=== PATIENT | female | born 1945 | race Caucasian/White ===

== ENCOUNTER 2024-07-27 12:04 | Outpatient (CLI) | payer MEDICARE, SELFPAY | END 2024-07-27 12:05 | disposition home or self-care (01) | LOC: AMB 07-29 11:19 | PROVIDERS: PCP Family Medicine; Visit Provider Emergency Medicine | DX: S99.912A Unspecified injury of left ankle, initial encounter (principal); W18.39XA Other fall on same level, initial encounter; Y92.512 Supermarket, store or market as the place of occurrence of the external cause | CPT/HCPCS: A0425; A0433 ==

== ENCOUNTER 2024-07-27 12:40 | Inpatient (IN) | payer MEDICARE, SELFPAY ==
[2024-07-27] VITALS (23 sets, daily range): BP systolic 112–199; BP diastolic 52–97; PULSE 70–92; RESP 18; TEMP 36.4–36.7; O2SAT 96–100; BMI 21.0; BMI 23.7
--- OUTSIDE RECORDS SUMMARY | 2024-07-27 12:43 | XMS_ITS | Clinical Summary ---
Author Organization [facility] Address [address] [place] [address] Care Team Providers Care Behavioral Health Aide Name Role Phone James Colby MD Unavailable [phone] Stephanie Barbosa MD Primary Care Provider [phone] Rudy Gomez MD Unavailable [phone] Allergies Active Allergy Reactions Criticality Noted Date Comments Penicillins Rash Childhood reaction Sulfa (Sulfonamide Antibiotics) Other - Describe In Comment Field purple leg Medications omeprazole (PRILOSEC) 20 mg Delayed-Release capsuleIndications: Chronic GERD Take 1 Capsule (20 mg) by mouth once daily if needed. 0 1 Active methotrexate (RHEUMATREX) 2.5 mg tabletIndications:R heumatoid arthritis, seropositive (HC) TAKE 3 TABLETS BY MOUTH EVERY SATURDAY 36 Tablet 4 4 Active allopurinoL (ZYLOPRIM) 100 mg tabletIndications:H igh risk medication use,Hyperuricemia,G out, unspecified cause, unspecified chronicity, unspecified site TAKE 2 TABLETS BY MOUTH ONCE DAILY. 180 Tablet 1 5 Active lisinopriL (PRINIVIL; ZESTRIL) 20 mg tabletIndications:H ypertension, unspecified type Take 1 Tablet (20 mg) by mouth once daily. 90 Tablet 3 5 Active rosuvastatin (CRESTOR) 10 mg tabletIndications:H yperlipidemia, unspecified hyperlipidemia type Take 1 Tablet (10 mg) by mouth at bedtime. 90 Tablet 3 5 Active chlorthalidone (HYGROTON) 25 mg tabletIndications:E ssential hypertension with goal blood pressure less than 140/90 Take 0.5 Tablets (12.5 mg) by mouth once daily. 45 Tablet 3 5 Active folic acid 1 mg tabletIndications:F olic acid deficiency Take 1 Tablet (1 mg) by mouth once daily. 90 Tablet 3 5 Active multivitamin (MVI) tabletIndications:U nintentional weight loss Take 1 Tablet by mouth once daily. 90 Tablet 3 5 Active calcium carbonate-vitamin D3, 600 mg-400 unit, 600 mg-10 mcg (400 unit) tabletIndications:O steopenia, unspecified location Take 1 Tablet by mouth two times daily with meals. 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 Hysterectomy ? Partial for uterine fibroids Colonoscopy Lipids 09/20/06 Encounters Date Type Department Care Team Description 06/24/2024 Orders Only [facility] [address] [place] [address] Stephanie Barbosa MD <No scans attached> 06/23/2024 1:35 PM AVIATION ELECTRONICS TECHNICIAN Office Visit [facility] [address] [place] [address] Stephanie Barbosa MD Medicare ANNUAL (subsequent) Visit (78 year old) 06/23/2024 Travel 06/18/2024 Refill [facility] [address] [place] [address] Rudy Gomez MD Refill Request (Allopurinol) 05/27/2024 Telephone [facility] [address] [place] [address] Stephanie Barbosa MD Questions (Lab work) from Last 3 Months Immunizations Immunization Administration Dates Next Due AMB INFLUENZA IIV3 (AGE 65+ YRS) PF (Flu Clinic Only) 02/26/2017 COVID-19 vaccine (Moderna 100mcg/0.5mL) PF, MDV 05/15/2021,08/19/2020,06/24/2020 Influenza, High-dose Inactivated 019,03/01/2016,04/12/2015,2013 Influenza, High-dose Quadriv alent Inactivated 03/01/2023,04/13/2022 Influenza, IIV3 (Age >=3 years) 02/09/2013,02/18,05/21/2008 Influenza, IIV4 03/08/2014 Influenza, Inactivated AIIV4 (Age 65+ Years) Preserv Free 02/16/2021,01/15/2020 Influenza, Inactivated IIV3 (Age 65+ Years) Preserv Free 01/15/2024,02/19/2018 Pneumococcal Poly,23-Valent (Pneumovax) 01/10/2011 Pneumococcal conj 13-Valent (Prevnar 13) 07/23/2014 Td (Age >=7 Years) 06/16/1998 Tdap 11/11/2023,05/21/2008 Family History Medical History Relation Name Comments Diabetes Brother Heart Disease Brother Heart Disease Father heart dis. age 67 Cancer Mother bone Cancer-breast Paternal Grandmother Cancer-breast Sister 2x Diabetes Sister Relation Name Status Comments Brother sepsis Father Mother Paternal Grandmother Sister Social History Tobacco Use Types Packs/Day Years Used Date Smoking Tobacco: Never Smokeless Tobacco: Never Tobacco Cessation:Counseling Given: Yes Alcohol Use Standard Drinks/Week Comments No 0 (1 standard drink = 0.6 oz pur e alcohol) PHQ-2 Answer Date Recorded PHQ-2 TOTAL SCORE 0 06/23/2024 Social Connections Answer Date Recorded Do you often feel lonely or isolated from those around you? 0 08/28/2023 Financial Resource Strain Answer Date R ecorded Difficulty of Paying Living Expenses 3 08/28/2023 Difficulty of Paying Living Expenses Not on file 08/28/2023 Food Insecurity Answer Date Recorded Do you worry your food will run out before you are able to buy more? 1 08/28/2023 Transportation Needs Answer Date Record ed Does lack of transportation keep you from medica l appointments? 1 08/28/2023 Does lack of transportation keep you from work, meetings or getting things that you need? 1 08/28/2023 Housing Stability Answer Date Recorded What is your housing situation today? 1 08/28/2023 Utilities Answer Date Recorded Do you have trouble paying f or utilities (for example, heat, electricity, water, phone)? 1 08/28/2023 Comments No Sex and Gender Information Value Date Recorded Sex Assigned at Not on file Legal Sex Female 6:16 AM AVIATION ELECTRONICS TECHNICIAN Gender Identity Not on file Sexual Orientation Not on file Obstetrics History Para Term AB IAB SAB Ectopic Multiple Livin g Live Births 2 2 Date Outcome GA Total Labor Labor/2nd/3rd Weight Sex Type Anes PTL Rere A1 A5 Name Clin Last Filed Vital Signs Vital Sign Reading Time Taken Comments Blood Pressure 138/52 06/23/2024 2:01 PM AVIATION ELECTRONICS TECHNICIAN Pulse 65 06/23/2024 1:30 PM AVIATION ELECTRONICS TECHNICIAN Temperature 36.6 C (97.9 F) 08/21/2022 1:11 PM CDT Respiratory Rate 16 09/06/2022 12:0 2 PM CDT Oxygen Saturation 100% 06/23/2024 1:30 PM AVIATION ELECTRONICS TECHNICIAN Inhaled Oxygen Concentration - - Weight 51.2 kg (112 lb 12.8 oz) 06/23/2024 1:30 PM AVIATION ELECTRONICS TECHNICIAN Height 154.5 cm (5' 0.83) 06/23/2024 1:30 PM CS T Body Mass Index 21.43 06/23/2024 1:30 PM AVIATION ELECTRONICS TECHNICIAN Plan of Treatment Health Maintenance Due Date Last Done Comments Zoster (shingles) series for age 50+ (1 of 2) 1964 RSV vaccine for adults or (1 - 1-dose 75+ series) 2020 COVID-19 vaccine series ( season) 2024 11/11/2023, 03/01/2023, 04/13/2022, Additional history exists BMI (ht and wt on same day) for age 18+ 06/23/2025 06/23/2024, 01/03/2023, 02/16/2021, Additional history exists Depression screening for age 12+ 06/24/2025 06/24/2024, 06/23/2024, 01/03/2023, Additional history exists Medicare Wellness for age 65+ 06/24/2025, 01/03/2023, 02/16/2021, Additional history exists Tetanus booster 11/10/2033 11/11/2023, 05/06, 05/21/2008, Additional history exists Pneumococcal series for age 50+ Completed 5, 01/10/2011 Hepatitis C screening for ag e 18-79 Completed 02/16/2021 DEXA/DXA scan for age 65+ Completed 2022, 12/08/2015, 03/18/2012 Tdap Completed 11/11/2023, 05/21/2008 Influenza Vaccine Completed 01/15/2024, , 01/15/2020, Additional history exists Medical Devices Implanted Type Area Cemetery Counselor Device Identifier Shelf Expiration Date Model / Serial / Lot Adhesion Barrier 5x6in Seprafilm Absorb - [id number] Implanted:Qty: 1 on 03/03/2018 by Liliam Guerrero MD at [facility] Abdomen [employer] 03/05/2018 4301-02# / / [id number] Adhesion Barrier 5x6in Seprafilm Absorb - [id number] Implanted:Qty: 1 on 03/03/2018 by Liliam Guerrero MD at [facility] Abdomen [employer] 05/05/2018 4301-02# / / [id number] Adhesion Barrier 5x6in Seprafilm Absorb - [id number] Implanted:Qty: 1 on 03/03/2018 by Liliam Guerrero MD at [facility] Abdomen [employer] 04/04/2018 4301-02# / / [id number] Procedures Procedure Name Priority Date/Time Associated Diagnosis Comments CALCITRIOL(1 25 DI OH VIT D) Routine 06/23/2024 4:00 PM AVIATION ELECTRONICS TECHNICIAN CBC WITH AUTO DIFFERENTIAL Routine 06/23/2024 4:00 PM AVIATION ELECTRONICS TECHNICIAN Anemia of unknown etiology TSH WITH REFLEX Routine 06/23/2024 4:00 PM AVIATION ELECTRONICS TECHNICIAN Rheumatoid arthritis, seropositive (HC) Unintentional weight loss COMP METABOLIC PANEL Routine 06/23/2024 4:00 PM AVIATION ELECTRONICS TECHNICIAN Hypertension, unspecified type Rheumatoid arthritis, seropositive (HC) FOLIC ACID Routine 06/23/2024 4:00 PM AVIATION ELECTRONICS TECHNICIAN Folic acid deficiency LIPID PANEL W REFLEX MEASURED LDL Routine 06/23/2024 4:00 PM AVIATION ELECTRONICS TECHNICIAN Lipid screening URIC ACID Routine 06/23/2024 4:00 PM AVIATION ELECTRONICS TECHNICIAN Gout, unspecified cause, unspecified chronicity, unspecified site FERRITIN Routine 06/23/2024 4:00 PM AVIATION ELECTRONICS TECHNICIAN Anemia of unknown etiology Unintentional weight loss XR DXA BONE DENSITY 2 SITES AXIAL Routine 08/13/2022 1:28 PM CDT Osteopenia, unspecified location Menopause ANTI HCV Routine 02/16/2021 4:09 PM CDT Need for hepatitis C screening test from Last 3 Months or Most Recently Relevant to Health Maintenance Results * CALCITRIOL(1 25 DI OH VIT D) (06/23/2024 4:00 PM AVIATION ELECTRONICS TECHNICIAN) VITAMIN D, 1,25 (OH)2, TOTAL 39 18 - 72 pg/mL [facility] VITAMIN D3, 1,25 (OH)2 39 pg/mL [facility] VITAMIN D2, 1,25 (OH)2 <8 pg/mL [facility] Comment: (Note) Vitamin D3, 1,25(OH)2 indicates both endogenous production and supplementation. Vitamin D2, 1,25(OH)2 is an indicator of exogenous sources, such as diet or supplementation. Interpretation and therapy are based on measurement of Vitamin D, 1,25 (OH)2, Total. This test was developed, and its analytical performance characteristics have been determined by [facility]. It has not been cleared or approved by the FDA. This assay has been validated pursuant to the CLIA regulations and is used for clinical purposes. For additional information, please refer to http://education.Genscript Technology.NexMed/faq/MYU732 (This link is being provided for informational/educational purposes only.) [facility] [address] [address],[address] [place] [address] Weston Booth MD, PhD 06/23/2024 4:00 PM AVIATION ELECTRONICS TECHNICIAN 06/24/2024 3:24 AM AVIATION ELECTRONICS TECHNICIAN Narrative [facility] - 06/27/2024 6:19 PM AVIATION ELECTRONICS TECHNICIAN FASTING: UNKNOWN us Doctor Unknown SEND OUTS Final Result [facility] [address] [place] [phone], [facility] [address] [place] [address], [address] [place] [phone] * TSH WITH REFLEX (06/23/2024 4:00 PM AVIATION ELECTRONICS TECHNICIAN) TSH W/REFLEX TO FT4 1.89 0.40 - 4.50 mIU/L [facility] Neal Blood BLOOD SPECIMEN / Unknown 06/23/2024 4:00 PM AVIATION ELECTRONICS TECHNICIAN 06/24/2024 3:24 AM AVIATION ELECTRONICS TECHNICIAN Narrative [facility] - 06/27/2024 6:19 PM AVIATION ELECTRONICS TECHNICIAN FASTING: UNKNOWN Stephanie Barbosa MD CHEMISTRY Final Resul t [facility] [address] [place] [address], [place] [phone] [facility] [address] [place] [address] * LIPID PANEL W REFLEX MEASURED LDL (06/23/2024 4:00 PM AVIATION ELECTRONICS TECHNICIAN) Pathologist [facility] CHOLESTEROL, TOTAL 144 <200 mg/dL [facility] [place] HDL CHOLESTEROL 58 > OR = 50 mg/dL [facility] TRIGLYCERIDES 79 <150 mg/dL [facility] LDL-CHOLESTEROL 70 mg/dL (calc) [facility] Comment: Reference range: <100 Desirable range <100 mg/dL for primary prevention; <70 mg/dL for patients with CHD or diabetic patients with > or = 2 CHD risk factors. LDL-C is now calculated using the Gabby calculation, which is a validated novel method providing better accuracy than the Friedewald equation in the estimation of LDL-C. James SS et al. RHIANNA. 2013;310(19): 7609-6497 (http://education.Quincee/faq/BFU474) CHOL/HDLC RATIO 2.5 <5.0 (calc) [facility] [place] NON HDL CHOLESTEROL 86 <130 mg/dL (calc) [facility] [place] Comment: For patients with diabetes plus 1 major ASCVD risk factor, treating to a non-HDL-C goal of <100 mg/dL (LDL-C of <70 mg/dL) is considered a therapeutic option. Blood BLOOD SPECIMEN / Unknown 06/23/2024 4:00 PM AVIATION ELECTRONICS TECHNICIAN 06/24/2024 3:24 AM AVIATION ELECTRONICS TECHNICIAN Narrative [facility] - 06/27/2024 6:19 PM AVIATION ELECTRONICS TECHNICIAN FASTING: UNKNOWN us Stephanie Barbosa MD CHEMISTRY Final Resul t [facility] [address] [place] [address], [facility] [address] [place] [address] * (ABNORMAL) CBC AND DIFFERENTIAL (06/23/2024 4:00 PM AVIATION ELECTRONICS TECHNICIAN) [facility] WHITE BLOOD CELL COUNT 6.2 3.8 - 10.8 Thousand/u L [facility] RED BLOOD CELL COUNT 3.63(L) 3.80 - 5.10 Million/uL [facility] HEMOGLOBIN 11.9 11.7 - 15.5 g/dL [facility] HEMATOCRIT 34.3(L) 35.0 - 45.0 % [facility] MCV 94.5 80.0 - 100.0 fL [facility] MCH 32.8 27.0 - 33.0 pg [facility] MCHC 34.7 32.0 - 36.0 g/dL [facility] Comment: For adults, a slight decrease in the calculated MCHC value (in the range of 30 to 32 g/dL) is most likely not clinically significant; however, it should be interpreted with caution in correlation with other red cell parameters and the patient's clinical condition. RDW 13.1 11.0 - 15.0 % [facility] PLATELET COUNT 178 140 - 400 Thousand/u L [facility] MPV 10.4 7.5 - 12.5 fL [facility] ABSOLUTE NEUTROPHILS 3,931 1,500 - 7,800 cells/uL [facility] ABSOLUTE LYMPHOCYTES 1,730 850 - 3,900 cells/uL [facility] ABSOLUTE MONOCYTES 378 200 - 950 cells/uL [facility] ABSOLUTE EOSINOPHILS 130 15 - 500 cells/uL [facility] ABSOLUTE BASOPHILS 31 0 - 200 cells/uL [facility] NEUTROPHILS 63.4 % [facility] LYMPHOCYTES 27.9 % [facility] MONOCYTES 6.1 % [facility] EOSINOPHILS 2.1 % [facility] BASOPHILS 0.5 % [facility] Blood BLOOD SPECIMEN / Unknown 06/23/2024 4:00 PM AVIATION ELECTRONICS TECHNICIAN 06/24/2024 3:24 AM AVIATION ELECTRONICS TECHNICIAN Narrative [facility] - 06/27/2024 6:19 PM AVIATION ELECTRONICS TECHNICIAN FASTING: UNKNOWN us Stephanie Barbosa MD HEMATOLOGY Final Resul t [facility] [address] [place] [address], [place] [phone] [facility] [address] [facility] [place] [address] * URIC ACID (06/23/2024 4:00 PM AVIATION ELECTRONICS TECHNICIAN) [facility] URIC ACID 4.4 2.5 - 7.0 mg/dL [facility] Comment: Therapeutic target for gout patients: <6.0 mg/dL Blood BLOOD SPECIMEN / Unknown 06/23/2024 4:00 PM AVIATION ELECTRONICS TECHNICIAN 06/24/2024 3:24 AM AVIATION ELECTRONICS TECHNICIAN Narrative [facility] - 06/27/2024 6:19 PM AVIATION ELECTRONICS TECHNICIAN FASTING: UNKNOWN us Stephanie Barbosa MD CHEMISTRY Final Resul t Performing Organization Address [facility] Co de Phone Number [facility] [address] [place] [address], [place] [phone] [facility] [address] [facility] [place] [address] * FOLIC ACID (06/23/2024 4:00 PM AVIATION ELECTRONICS TECHNICIAN) [facility] FOLATE, SERUM >24.0 ng/mL [facility] Comment: Reference Range Low: <3.4 Borderline: 3.4-5.4 Normal: >5.4 Blood BLOOD SPECIMEN / Unknown 06/23/2024 4:00 PM AVIATION ELECTRONICS TECHNICIAN 06/24/2024 3:24 AM AVIATION ELECTRONICS TECHNICIAN Narrative [facility] - 06/27/2024 6:19 PM AVIATION ELECTRONICS TECHNICIAN FASTING: UNKNOWN us Stephanie Barbosa MD CHEMISTRY Final Resul t Performing Organization Address [facility] Co de Phone Number [facility] [address] [place] [address], [place] [phone] [facility] [address] [place] [address] * FERRITIN (06/23/2024 4:00 PM AVIATION ELECTRONICS TECHNICIAN) Pathologist [facility] FERRITIN 151 16 - 288 ng/mL [facility] Blood BLOOD SPECIMEN / Unknown 06/23/2024 4:00 PM AVIATION ELECTRONICS TECHNICIAN 06/24/2024 3:24 AM AVIATION ELECTRONICS TECHNICIAN Narrative [facility] - 06/27/2024 6:19 PM AVIATION ELECTRONICS TECHNICIAN FASTING: UNKNOWN Stephanie Barbosa MD CHEMISTRY Final Resul t [facility] [address] [place] [address], [facility] [address] [place] [address] * (ABNORMAL) COMP METABOLIC PANEL (06/23/2024 4:00 PM AVIATION ELECTRONICS TECHNICIAN) Pathologist [facility] GLUCOSE 85 65 - 99 mg/dL [facility] Comment: Fasting reference interval UREA NITROGEN (BUN) 19 7 - 25 mg/dL [facility] CREATININE 1.11(H) 0.60 - 1.00 mg/dL [facility] EGFR 51(L) > OR = 60 mL/min/1.7 3m2 [facility] BUN/CREATININE RATIO 17 6 - 22 (calc) [facility] SODIUM 139 135 - 146 mmol/L [facility] POTASSIUM 4.1 3.5 - 5.3 mmol/L [facility] CHLORIDE 103 98 - 110 mmol/L [facility] CARBON DIOXIDE 25 20 - 32 mmol/L [facility] CALCIUM 9.9 8.6 - 10.4 mg/dL [facility] PROTEIN, TOTAL 7.2 6.1 - 8.1 g/dL [facility] ALBUMIN 4.5 3.6 - 5.1 g/dL [facility] GLOBULIN 2.7 1.9 - 3.7 g/dL (calc) [facility] ALBUMIN/GLOBULIN RATIO 1.7 1.0 - 2.5 (calc) [facility] BILIRUBIN, TOTAL 0.8 0.2 - 1.2 mg/dL [facility] ALKALINE PHOSPHATASE 148 37 - 153 U/L [facility] AST 23 10 - 35 U/L [facility] ALT 10 6 - 29 U/L [facility] Blood BLOOD SPECIMEN / Unknown 06/23/2024 4:00 PM AVIATION ELECTRONICS TECHNICIAN 06/24/2024 3:24 AM AVIATION ELECTRONICS TECHNICIAN Narrative [facility] - 06/27/2024 6:19 PM AVIATION ELECTRONICS TECHNICIAN FASTING: UNKNOWN us Stephanie Barbosa MD CHEMISTRY Final Resul t [facility] [address] [place] [address], [facility] [address] [place] [address] * (ABNORMAL) XR DXA BONE DENSITY 2 SITES AXIAL (08/13/2022 1:28 PM CDT) Anatomical Region Laterality Modality Spine, HIPS, HIPL, HIPR Other Impressions 08/14/2022 8:16 AM CDT Osteopenia. RECOMMENDATIONS: The National Osteoporosis Foundation recommends pharmacologic treatment for patients with T-scores of -2.5 or less, patients with prior history of fragility fractures, or patients with 10-year probability of greater than 3% at hips or greater than 20% of suffering major osteoporotic fractures. Recommend continued optimization of calcium and vitamin D intake through dietary means and/or supplementation and regular exercise. Consider pharmacologic therapy for osteopenia with increased fracture risk. Follow-up bone density reading in 2 years if therapy initiated to assess therapeutic efficacy. Teresa Lora PA-C [facility] 08/14/2022 Narrative 08/14/2022 8:16 AM CDT For Patients: Results are automatically released to your [facility] (iwoca) account once available, in compliance with federal regulations. This means that you may see your results before your provider has had a chance to review them. Please allow 2-3 business days for your provider to comment on the results. XR DXA Bone Mineral Density (BMD) EXAM LOCATION: [facility] [address] [facility] [address] PATIENT NAME: Jennifer Garner DATE OF : 1945 EXAM DATE: 08/13/2022 REQUESTING PROVIDER: Stephanie Barbosa MD GENDER AT : female HEIGHT: 5' 1.5 (02/16/2021) WEIGHT: 131 lb 6.4 oz (08/07/2022) MENOPAUSAL STATUS: Postmenopausal RACE/ETHNICITY: White RISK FACTORS: Rheumatoid Arthritis and White Race CURRENT MEDICATION FOR BONE LOSS: NONE INDICATION: Follow-up of existing osteopenia COMPARISON DATE(S): 2011 SPINE, 2015 HIPS DXA scans are compared to prior studies for a patient only when the two (or more) studies were performed on the same scanner. It is not possible to compare data generated on one scanner to data from another because there are not standards in DXA equipment. This applies even if the two scanners are made by the same label paster. PROCEDURE: Dual-energy x-ray absorptiometry performed with routine technique. Reporting is completed in the form of a T-score. The T-score represents the standard deviation from peak bone mass based on young healthy adult. A Z-score is used for diagnosis in premenopausal women, and for men under the age of 50. FINDINGS: RESULT LUMBAR SPINE L1 - L4 BMD: 0.990 g/cm2 T-Score: - 1.6 Z-Score: + 0.4 Change from prior in 2011: Increase 0.4%. RESULTS FEMUR Left femoral neck BMD: 0.772 g/cm2 T-Score: - 1.9 Z-Score: + 0.2 Change from prior in 2016: Decrease 17.4%. Right femoral neck BMD: 0.759 g/cm2 T-Score: - 2.0 Z-Score: + 0.1 Change from prior DECREASE 12.7% Left hip BMD: 0.770 g/cm2 T-Score: - 1.9 Z-Score: + 0.1 Change from prior in 2016: Decrease 17.3%. Right hip BMD: 0.736 g/cm2 T-Score: - 2.2 Z-Score: - 0.2 Change from prior in 2016: Decrease 16.7%. WHO criteria: Normal: T-score at or above -1 SD Osteopenia: T-score between -1.1 and -2.4 SD Osteoporosis: T-score at or below -2.5 SD FRAX RISK CALCULATION (USED FOR OSTEOPENIA ONLY): 10-year probability of major osteoporotic fracture: 26.6%. 10-year probability of hip fracture: 7.6%. Stephanie Barbosa MD DEXA Final Resul t * ANTI HCV (02/16/2021 4:09 PM CDT) HEPATITIS C ANTIBODY Non-React reggie Non-React reggie 02/17/2021 3:39 PM CDT [facility] Comment:Antibodies to HCV no t detected; does not exclude the possibility of exposure to HCV. Blood BLOOD SPECIMEN / Unknown Venipuncture / Unknown 02/16/2021 4:09 PM CDT 02/16/2021 4:09 PM CDT Stephanie Barbosa MD SEND OUTS Final Resul t [facility] [address] [place] [address], from Last 3 Months or Most Recently Relevant to Health Maintenance Insurance [facility] AV ATTN: [place] [address] MEDICARE PART A HB ONLY MEDICARE PART B HB ONLY [facility] MEDICARE ADVANTAGE MR Advance Directives * Full Code (Latest Code Status on File) Date Activated Date Inactivated Comments 03/03/2018 7:23 AM 03/07/2018 2:59 PM Care Teams Behavioral Health Aide Relationship Specialty Start Date End Date Stephanie Barbosa MD [address] [facility] [address] PCP - General Family Practice 02/16/21 James Colby MD [address] [place] [address] Gastroenterology 05/11/13 Rudy Gomez MD [address] [facility] [address] [place] [address] Rheumatology 09/05/22
--- NOTE | 2024-07-27 12:59 | ED_ITS ---
HPI - General Adult General Date Seen: 07/27/24 Chief complaint: Extremity Pain/Injury, Lower Stated complaint: left ankle injury Time Seen by Provider: 07/27/24 12:58 History of Present Illness HPI narrative: 78-year-old female brought to the ER today by EMS for evaluation of a left ankle injury. Per report she was at the grocery store when she fell and hurt her left ankle. She apparently had an obvious deformity and was placed into an JOHN splint by EMS. She says that she was getting unsteady because she would not eat breakfast today. She has a past medical history of dyslipidemia on rosuvastatin, hypertension on chlorthalidone and lisinopril and atenolol, and Gou on allopurinol. She does not take any anticoagulants. She says that she generally does not have a very good appetite so normally does not eat a lot. Her daughter agrees and notes that for the past several months she has been losing weight. 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 She did not have breakfast or anything eat or drink today. She also notes that she slept poorly last night but she is not sure why she had insomnia. She was at the grocery store this morning and was good doing to the checkout when she abruptly got sweaty and dizzy and then wound up on the floor. She does not think she backed out and she remembers falling. She did not have any chest pain. She did not have any palpitations. No shortness of breath. No nausea. No headache. No other focal neurologic deficits. She was on the floor she recognizes that her left foot was crawl kid. EMS was called. They do report that she had an obviously angulated or rotated fracture and they placed her into a John's plan. She received pain meds per EMS. She is having pain in her left lower leg and ankle but denies pain any place else on her body. Related Data Home Medications ?Medication ?Instructions ?Recorded ?Confirmed allopurinol 100 mg tablet 200 mg PO DAILY 07/27/24 07/27/24 calcium 600 mg (as 1 tab PO BID 07/27/24 07/27/24 carbonate)-vitamin D3 10 mcg (400 unit) tablet chlorthalidone 25 mg tablet 12.5 mg PO DAILY 07/27/24 07/27/24 folic acid 1 mg tablet 1 mg PO DAILY 07/27/24 07/27/24 lisinopril 20 mg tablet 20 mg PO DAILY 07/27/24 07/27/24 methotrexate sodium 2.5 mg tablet 7.5 mg PO Q7D 07/27/24 07/27/24 multivitamin with folic acid 400 1 tab PO DAILY 07/27/24 07/27/24 mcg tablet (Daily-Mariama (with folic acid)) rosuvastatin 10 mg tablet 10 mg PO HS 07/27/24 07/27/24 Allergies Allergy/AdvReac Type Severity Reaction Status Date / Time No Known Drug Allergies Allergy Verified 07/27/24 12:50 [facility] Social History service: No Exam Narrative: Exam Narrative: Primary Survey: A- patent. Speaking clearly. Phonation normal. No stridor. B- breathing easily. Lung sounds clear and equal. Oxygen saturation normal on room air C- no active bleeding. Blood pressure stable. Symmetric pulses and cap refill in 4 extremities. D- alert and oriented x3. GCS 15. No focal deficits. Constitutional: Appears well-developed and well-nourished. Alert. Conversant. Non toxic. HENT: Head: Atraumatic. No depressed skull fracture, Raccoon Eyes, Rodrigez's sign. Face normal. Nose: Nose normal. Mouth/Throat: Oral mucosa is clear and moist. no trismus. Pharynx normal. Tonsils symmetric. No tonsillar enlargement, erythema, or exudate. Eyes: Conjunctivae normal. EOM normal. Pupils equal, round, and reactive to light. No scleral icterus. Neck: Normal range of motion. Neck supple. No tracheal deviation present. No posterior midline tenderness but she does have a significant leg injury which qualifies as a distracting injury. Cardiovascular: Normal rate, regular rhythm. No gallop. No friction rub. No murmur heard. Symmetric radial artery pulses . Strong distal PT and DP pulses. Normal distal cap refill. Pulmonary/Chest: Effort normal. No stridor. No respiratory distress. No wheezes. No rales. No rhonchi . No tenderness. Abdominal: Soft.No distension. No mass. No tenderness. No rebound. No guarding. Musculoskeletal: RUE: Normal range of motion. No tenderness. No deformity LUE: Normal range of motion. No tenderness. No deformity RLE: Normal range of motion. No edema. No tenderness. No deformity LLE: Normal range of motion. No edema. No tenderness. No deformity Lymph: No cervical adenopathy. Neurological: Alert and oriented to person, place, and time. Normal strength. CN II-VII intact. No sensory deficit. GCS eye subscore is 4. GCS verbal subscore is 5. GCS motor subscore is 6. Normal coordination intact distal toe wiggling. Intact distal sensory function in her feet including the dorsal 1st webspace, sole of the foot, medial lateral fluid. Skin: Skin is warm and dry. No rash noted. No pallor. Normal capillary refill. Psychiatric: Normal mood. Normal affect. Const: Vital Signs, click to edit/add: Vital Signs - 24 hr 07/27/24 12:44 07/27/24 12:53 07/27/24 13:10 Temperature 97.6 F Pulse Rate 70 Pulse Rate [Right Pulse Oximeter] 79 Respiratory Rate 18 Blood Pressure Blood Pressure [Le ft Upper Arm] 199/66 H Pulse Oximetry 99 99 Oxygen Delivery Me od Room Air 07/27/24 13:12 07/27/24 13:15 07/27/24 13:58 Temperature Pulse Rate 73 74 92 Pulse Rate [Right Pulse Oximeter] Respiratory Rate Blood Pressure 177/84 H Blood Pressure [Le ft Upper Arm] Pulse Oximetry 100 99 96 Oxygen Delivery Me thod 07/27/24 14:00 07/27/24 14:02 07/27/24 14:03 Temperature Pulse Rate 89 90 81 Pulse Rate [Right Pulse Oximeter] Respiratory Rate Blood Pressure 142/60 H Blood Pressure [Le ft Upper Arm] Pulse Oximetry 100 100 100 Oxygen Delivery Me thod 07/27/24 14:23 07/27/24 14:30 07/27/24 14:32 Temperature Pulse Rate 84 83 83 Pulse Rate [Right Pulse Oximeter] Respiratory Rate Blood Pressure 146/52 H Blood Pressure [Le ft Upper Arm] Pulse Oximetry 97 97 97 Oxygen Delivery Me thod 07/27/24 14:33 07/27/24 14:45 07/27/24 15:00 Temperature Pulse Rate 82 78 83 Pulse Rate [Right Pulse Oximeter] Respiratory Rate Blood Pressure Blood Pressure [Le ft Upper Arm] Pulse Oximetry 97 99 97 Oxygen Delivery Nd thod 07/27/24 15:02 07/27/24 15:15 Temperature Pulse Rate 84 76 Pulse Rate [Right Pulse Oximeter] Respiratory Rate Blood Pressure 112/97 H Blood Pressure [Le ft Upper Arm] Pulse Oximetry 98 99 Oxygen Delivery Me thod Course Course ED Course: History and physical from the ER bed 8. Patient has isolated pain in her left lower leg foot in the tibia and fibula also involving the ankle. Radiating up to, but not including the knee. She denies any other painful injuries and does not think she hit her head. Remainder of her trauma exam is negative. Will start workup with portable films of her tibia/fibula but I think based on mechanism and potential for head injury will obtain head and C-spine imaging after evaluating her left lower leg. He also needs workup for potential dizziness or syncope. However, patient and daughter suspect she probably fainted because she did not eat breakfast today. Tib-fib x-rays confirmed displaced fracture of both bones. Consult placed for Ortho. Procedure: Splint placement Left leg short-leg posterior mold and medial/lateral stirrups splint Indication: Tibia/fibula fracture Verbal consent obtained from the patient or daughter. Analgesia with IV fentanyl. The with the assistance of nurse and geotechnical department manager I placed the splint using 3 in fiberglass. The splint was secured with Rd wrap. Padding with the cotton padding. Splint was formed to appropriate alignment and anatomic fit. He was distally neurovascularly intact after splint placement. 1405 discussed with Orthopedics, [place], Christine Blackman. She reviewed imaging and discussed with her attending, Dr. Martin. They agree she needs surgery and can be appropriately managed here in [place]. They anticipate that if they can get the appropriate hardware transported to the hospital that she may be able go to the OR this afternoon after 4:00 p.m.. If hardware is not available she will have to be admitted in the hospital overnight with plans for operative fixation tomorrow. Vital Signs Vital signs: Initial Vital Signs Pulse Rate 79 07/27/24 12:44 Pulse Rhythm Regular 07/27/24 12:44 Pulse Strength 3+ Normal 07/27/24 12:44 Respiratory Rate 18 07/27/24 12:44 Blood Pressure 199/66 H 07/27/24 12:44 Blood Pressure Mean 110 H 07/27/24 12:44 Blood Pressure Position Semi-Fowlers 07/27/24 12:44 Pulse Oximetry 99 07/27/24 12:44 Oxygen Delivery Method Room Air 07/27/24 12:44 Vital Signs Pulse Rate 79 07/27/24 12:44 Respiratory Rate 18 07/27/24 12:44 Blood Pressure 199/66 H 07/27/24 12:44 Pulse Oximetry 99 07/27/24 12:44 Oxygen Delivery Method Room Air 07/27/24 12:44 Temperature 97.6 F 07/27/24 12:53 Pulse Rate 76 07/27/24 15:15 Respiratory Rate 18 07/27/24 12:44 Blood Pressure 112/97 H 07/27/24 15:02 Pulse Oximetry 99 07/27/24 15:15 Oxygen Delivery Method Room Air 07/27/24 12:44 Medications Administered Medications: Discontinued Medications Generic Name Dose Route Start Last Admin Trade Name Freq PRN Reason Stop Dose Admin Fentanyl 25 mcg 07/27/24 13:16 07/27/24 13:32 Fentanyl 100 Mcg/2 Ml Inj IVP 07/27/24 13:17 25 mcg ONCE ONE Administration Sodium Chloride 1,000 mls @ 1,000 mls/hr 07/27/24 13:30 07/27/24 13:35 0.9 % Sodium Chloride 1000 Ml IV 07/27/24 14:29 1,000 mls/hr .Q1H ABHILASH Administration Ondansetron HCl 4 mg 07/27/24 13:16 07/27/24 13:33 Ondansetron 2 Mg/Ml Inj IVP 07/27/24 13:17 4 mg ONCE ONE Administration Medical Decision Making MDM Narrative Medical decision making narrative: 78-year-old female presenting to the ER today by EMS after she fell at the grocery store injured her left lower leg. 1. Ortho. She does have left lower leg pain with pain and deformity and swelling at the ankle or just proximal to it. X-rays and clinical exam confirmed a mildly displaced both-bone tibia/fibula fracture. IV fentanyl administered for pain control and placed into a temporary fiberglass splint with a posterior mold any medial/lateral stirrup. In discussion/phone consultation with Orthopedics plan will be to admit for pain control and neurovascular monitoring overnight with plans to go to the OR 1st thing tomorrow morning. At this point she is neurovascularly intact. No evident compartment syndrome at this time. Will need neurovascular monitoring. 2. Neuro. She did have a episode where she lost her balance and fell. Unclear etiology. She does not think she lost consciousness so not really a true syncopal event. Might have been near syncope or might have simply been poor balance. She does not think she hit her head and does not have a headache but head CT is obtained given the unclear circumstances of the fall and is normal. She has no focal neurologic deficits. No reported witnessed seizure activity. 3. Cardiac. Consider possible presyncope. She is not having any chest pain, palpitations, or other clear symptoms to suggest ACS or arrhythmia. Screening EKG shows sinus rhythm. Troponin is normal. 4. Renal/electrolytes. Electrolytes normal. Kidney function normal. 5. Endocrine. Blood sugar 116. CT scan C-spine does show evidence for thyroid nodule. Will need follow-up thyroid imaging. 6. Heme. She does have anemia with hemoglobin at 10.9. Unchanged from prior. Lab Data Labs: Lab Results 07/27/24 Range/Units 13:31 WBC 5.25 (4.50-11.00) K/uL RBC 3.36 L (4.00-5.20) m/uL Hgb 10.9 L (12.0-16.0) gm/dL Hct 31.7 L (33.0-51.0) % MCV 94 (80-100) fL MCH 32 (26-34) pg MCHC 34 (32-36) gm/dL RDW Coeff of Gerber 14.7 (11.5-15.5) % Plt Count 140 (140-440) K/uL Neut % (Auto) 77.3 H (42.0-72.0) % Lymph % (Auto) 15.6 L (20-44) % Sterling % (Auto) 5.7 (0.0-11.0) % Eos % (Auto) 0.6 (0.0-7.0) % Baso % (Auto) 0.4 (0.0-3.0) % Neut # (Auto) 4.10 (1.7-7.0) K/uL Lymph # (Auto) 0.80 L (0.90-2.90) K/uL Sterling # (Auto) 0.30 (0.00-0.90) K/UL Eos # (Auto) 0.03 (0.00-0.50) K/uL Baso # (Auto) 0.02 (0.00-0.30) K/uL Abs Immat Gran (auto) 0.02 (0.00-0.30) K/uL Imm/Tot Granulo (auto) 0.4 % Sodium 138 (135-149) mmol/L Potassium 3.8 (3.6-5.1) mmol/L Chloride 105 (96-114) mmol/L Carbon Dioxide 23 (20-32) mmol/L Anion Gap 10 (7-15) mEq/L BUN 21 (7-30) mg/dL Creatinine 1.0 (0.5-1.5) mg/dL Estimated Creat Clear 36.67 Estimated GFR 58 ml/min Glucose 116 H (60-115) mg/dL Lactate 1.0 (0.5-1.9) mmol/L Calcium 9.5 (8.4-10.6) mg/dL Troponin I < 0.01 (0.01-0.04) ng/mL Imaging Data XR L tib/fib: Attestation: I have reviewed the pertinent imaging results. My impression: Slightly displaced distal tibia/fibula fracture. Mild lateral displacement. Radiologist's impression: Findings/Impression: There is an oblique fracture of the distal tibial diaphysis with 7 millimeters lateral displacement of the distal fracture fragment. There is a corresponding fracture of the distal fibular diaphysis with 5 millimeters lateral displacement of the distal fracture fragment. Distal fibular fracture is mildly comminuted. Additionally, there is a fracture of the fibular neck without significant displacement. There is a lucency within the medial aspect of the proximal tibial metaphysis with adjacent sclerosis. This appears to be more anterior on the lateral view. This is more indeterminate on these views and could represent a subacute fracture or less likely a lucent bony lesion. Dedicated knee series may have improved characterization. CT scan - head: Attestation: I have reviewed the pertinent imaging results. Radiologist's impression: IMPRESSION: 1. No calvarial fracture or intracranial bleed. 2. Nonspecific white matter disease, likely microangiopathy. CT C-spine: Attestation: I have reviewed the pertinent imaging results. Radiologist's impression: IMPRESSION: 1. Mild degenerative changes cervical spine without evidence of cervical spine fracture. 2. Indeterminate right thyroid lesion. Suggest follow-up outpatient thyroid ultrasound. ECG Data Attestation: I personally reviewed and interpreted this ECG as follows: Interpretation: Normal sinus rhythm Rate: 90 ME: 188 QRS axis: Normal axis. No pathologic Q-waves. ST segment/T wave: No ST segment elevation or depression. QTc: 474 Discharge Plan Discharge Clinical Impression: Fracture tibia/fibula, Fall, Thyroid nodule Patient Disposition: Admitted As Observation
--- NOTE | 2024-07-27 13:15 | CRLHL7_ITS ---
For Patients: As a result of the Century Cures Act, medical imaging exams and procedure reports are released immediately into your electronic medical record. You may view this report before your referring provider. If you have questions, please contact your health care provider. Indication: Fall, leg deformity Technique: Two views left tibia fibula Comparison: None Findings/Impression: There is an oblique fracture of the distal tibial diaphysis with 7 millimeters lateral displacement of the distal fracture fragment. There is a corresponding fracture of the distal fibular diaphysis with 5 millimeters lateral displacement of the distal fracture fragment. Distal fibular fracture is mildly comminuted. Additionally, there is a fracture of the fibular neck without significant displacement. There is a lucency within the medial aspect of the proximal tibial metaphysis with adjacent sclerosis. This appears to be more anterior on the lateral view. This is more indeterminate on these views and could represent a subacute fracture or less likely a lucent bony lesion. Dedicated knee series may have improved characterization. Dictated by Enrique Kurtz MD @ 07/27/2024 1:45:42 PM (Electronically Signed)
--- NOTE | 2024-07-27 13:16 | CRLHL7_ITS ---
For Patients: As a result of the Cures Act, medical imaging exams and procedure reports are released immediately into your electronic medical record. You may view this report before your referring provider. If you have questions, please contact your health care provider. INDICATION: Fall, possible loss of consciousness. Distracting injury. TECHNIQUE: CT cervical spine without contrast. COMPARISON: None FINDINGS: Vertebrae: Alignment is normal. There are no fractures or suspicious bony lesions. Discs and facet joints: Mild facet hypertrophy and disc space narrowing C3-4 without significant stenosis. Disc space narrowing with posterior osteophytes at C5-6. Small posterior osteophytes cause mild right foraminal stenosis. Mild disc space narrowing and small osteophytes at C6-7 without significant stenosis. Facet hypertrophy C7-T1 without significant stenosis. Extraspinal findings: Atherosclerosis. Subcentimeter hypodensity at the junction of the right lobe of the thyroid gland and isthmus. IMPRESSION: 1. Mild degenerative changes cervical spine without evidence of cervical spine fracture. 2. Indeterminate right thyroid lesion. Suggest follow-up outpatient thyroid ultrasound. Please note that all CT scans at this facility use dose modulation, iterative reconstruction, and/or weight-based dosing when appropriate to reduce radiation dose to as low as reasonably achievable. Dictated by Enrique Kurtz MD @ 07/27/2024 2:48:20 PM (Electronically Signed)
--- NOTE | 2024-07-27 13:16 | CRLHL7_ITS ---
For Patients: As a result of the Century Cures Act, medical imaging exams and procedure reports are released immediately into your electronic medical record. You may view this report before your referring provider. If you have questions, please contact your health care provider. INDICATION: Fall, possible loss of consciousness TECHNIQUE: CT head without contrast. COMPARISON: None. FINDINGS: CSF spaces: Within normal limits for age. Brain parenchyma: The day-white differentiation is normal. No sign of mass, hemorrhage, or midline shift. Patchy low density within the deep white matter. Skull base and calvarium: The visualized paranasal sinuses and mastoid air cells demonstrate no acute or significant findings. The visualized orbits are grossly unremarkable. No skull fractures. Atherosclerosis. IMPRESSION: 1. No calvarial fracture or intracranial bleed. 2. Nonspecific white matter disease, likely microangiopathy. Please note that all CT scans at this facility use dose modulation, iterative reconstruction, and/or weight-based dosing when appropriate to reduce radiation dose to as low as reasonably achievable. Dictated by Enrique Kurtz MD @ 07/27/2024 2:43:14 PM (Electronically Signed)
[2024-07-27] MEDS: fentaNYL 100 MCG/2 ML inj 25 MCG IVP (13:32)
[2024-07-27] MEDS: ONDANSETRON 2 MG/ML inj 4 MG IVP ×2 (13:33→17:15)
[2024-07-27] MEDS: 0.9 % SODIUM CHLORIDE 1000 ml 1,000 ML IV (13:35)
[2024-07-27 13:37] LABS: Basophils Absolute Auto 0.02 K/uL (0.00-0.30); Basophils Percent Auto 0.4 % (0.0-3.0); Eosinophils Absolute Auto 0.03 K/uL (0.00-0.50); Eosinophils Percent Auto 0.6 % (0.0-7.0); Hematocrit 31.7 % (33.0-51.0); Hemoglobin* 10.9 gm/dL (12.0-16.0); Immature Granulocytes Abs Auto 0.02 K/uL (0.00-0.30); Immature Granulocytes Pct Auto 0.4 %; Lymphocytes Percent Auto 15.6 % (20-44); Mean Corpuscular HGB Conc 34 gm/dL (32-36); Mean Corpuscular Hemoglobin 32 pg (26-34); Mean Corpuscular Volume 94 fL (80-100); Monocytes Percent Auto 5.7 % (0.0-11.0); Neutrophils Percent Auto 77.3 % (42.0-72.0); Platelet Count* 140 K/uL (140-440); RDW Coefficient of Variation % 14.7 % (11.5-15.5); Red Blood Count 3.36 m/uL (4.00-5.20); White Blood Count* 5.25 K/uL (4.50-11.00)
--- OUTSIDE RECORDS SUMMARY | 2024-07-27 13:37 | XMS_ITS | Clinical Summary ---
Author Organization [employer] [facility] Address [address] [place] [address] Care Team Providers Care Preliminary School Psychologist Name Role Phone James Colby MD Unavailable [phone] Stephanie Barbosa MD Primary Care Provider [phone] Rudy Gomez MD Unavailable Allergies Active Allergy Reactions Criticality Noted Date [...] Department Care Team Description 06/24/2024 Orders Only [facility] [address] [place] [address] Stephanie Barbosa MD <No scans attached> 06/23/2024 1:35 PM BENCH TECHNICIAN Office Visit [facility] [address] [place] [address] Stephanie Barbosa MD Medicare ANNUAL (subsequent) Visit (78 year old) 06/23/2024 Travel 06/18/2024 Refill [facility] [address] [place] [address] Rudy Gomez MD Refill Request (Allopurinol) 05/27/2024 Telephone [facility] [address] [place] [address] Stephanie Barbosa MD Questions (Lab work) from [...] on file Legal Sex Female 6:16 AM BENCH TECHNICIAN Gender Identity Not on file Sexual Orientation Not on file Obstetrics History Para Term AB IAB SAB Ectopic Multiple Livin g Live Births 2 2 Date Outcome GA Total Labor Labor/2nd/3rd Weight Sex Type Anes PTL Rere A1 A5 Name Clin Last Filed Vital Signs Vital Sign Reading Time Taken Comments Blood Pressure 138/52 06/23/2024 2:01 PM BENCH TECHNICIAN Pulse 65 06/23/2024 1:30 PM BENCH TECHNICIAN Temperature 36.6 C (97.9 F) 08/21/2022 1:11 PM CDT Respiratory Rate 16 09/06/2022 12:0 2 PM CDT Oxygen Saturation 100% 06/23/2024 1:30 PM BENCH TECHNICIAN Inhaled Oxygen Concentration - - Weight 51.2 kg (112 lb 12.8 oz) 06/23/2024 1:30 PM BENCH TECHNICIAN Height 154.5 cm (5' 0.83) 06/23/2024 1:30 PM CS T Body Mass Index 21.43 06/23/2024 1:30 PM BENCH TECHNICIAN Plan of Treatment Health Maintenance Due [...] history exists Medical Devices Implanted Type Area Electronic Publishing Specialist Device Identifier Shelf Expiration Date Model / Serial / Lot Adhesion Barrier 5x6in Seprafilm Absorb - [id number] Implanted:Qty: 1 on 03/03/2018 by Liliam Guerrero MD at [facility] Abdomen [employer] 03/05/2018 4301-02# / / [id number] Adhesion Barrier 5x6in Seprafilm Absorb - [id number] Implanted:Qty: 1 on 03/03/2018 by Liliam Guerrero MD at [facility] Abdomen [employer] 05/05/2018 4301-02# / / [id number] Adhesion Barrier 5x6in Seprafilm Absorb - [id number] Implanted:Qty: 1 on 03/03/2018 by Liliam Guerrero MD at [facility] Abdomen [employer] 04/04/2018 4301-02# / / [id number] Procedures Procedure Name Priority Date/Time Associated Diagnosis Comments CALCITRIOL(1 25 DI OH VIT D) Routine 06/23/2024 4:00 PM BENCH TECHNICIAN CBC WITH AUTO DIFFERENTIAL Routine 06/23/2024 4:00 PM BENCH TECHNICIAN Anemia of unknown etiology TSH WITH REFLEX Routine 06/23/2024 4:00 PM BENCH TECHNICIAN Rheumatoid arthritis, seropositive (HC) Unintentional weight loss COMP METABOLIC PANEL Routine 06/23/2024 4:00 PM BENCH TECHNICIAN Hypertension, unspecified type Rheumatoid arthritis, seropositive (HC) FOLIC ACID Routine 06/23/2024 4:00 PM BENCH TECHNICIAN Folic acid deficiency LIPID PANEL W REFLEX MEASURED LDL Routine 06/23/2024 4:00 PM BENCH TECHNICIAN Lipid screening URIC ACID Routine 06/23/2024 4:00 PM BENCH TECHNICIAN Gout, unspecified cause, unspecified chronicity, unspecified site FERRITIN Routine 06/23/2024 4:00 PM BENCH TECHNICIAN Anemia of unknown etiology Unintentional weight loss XR DXA BONE DENSITY 2 SITES AXIAL Routine 08/13/2022 1:28 PM CDT Osteopenia, unspecified location Menopause ANTI HCV Routine 02/16/2021 4:09 PM CDT Need for hepatitis C screening test from Last 3 Months or Most Recently Relevant to Health Maintenance Results * CALCITRIOL(1 25 DI OH VIT D) (06/23/2024 4:00 PM BENCH TECHNICIAN) VITAMIN D, 1,25 (OH)2, TOTAL 39 [...] analytical performance characteristics have been determined by [facility]. It has not been cleared or approved by the FDA. This assay has been validated pursuant to the CLIA regulations and is used for clinical purposes. For additional information, please refer to http://education.goBramble.Turbo-Trac [place]/faq/RBI493 (This link is being provided for informational/educational purposes only.) [facility] [address] [address],[address] [place] [address] Weston Booth MD, PhD 06/23/2024 4:00 PM BENCH TECHNICIAN 06/24/2024 3:24 AM BENCH TECHNICIAN Narrative [facility] - 06/27/2024 6:19 PM BENCH TECHNICIAN FASTING: UNKNOWN us Doctor Unknown SEND OUTS Final Result [facility] [address] [place] [phone], [facility] [address] [place] [address], [address] [place] [phone] * TSH WITH REFLEX (06/23/2024 4:00 PM BENCH TECHNICIAN) TSH W/REFLEX TO FT4 1.89 0.40 - 4.50 mIU/L [facility] Neal Blood BLOOD SPECIMEN / Unknown 06/23/2024 4:00 PM BENCH TECHNICIAN 06/24/2024 3:24 AM BENCH TECHNICIAN Narrative [facility] - 06/27/2024 6:19 PM BENCH TECHNICIAN FASTING: UNKNOWN Stephanie Barbosa MD CHEMISTRY Final Resul t [facility] [address] [place] [address], [place] [phone] [facility] [address] [place] [address] * LIPID PANEL W REFLEX MEASURED LDL (06/23/2024 4:00 PM BENCH TECHNICIAN) Pathologist [facility] CHOLESTEROL, TOTAL 144 <200 mg/dL [facility] [place] HDL CHOLESTEROL 58 > OR = 50 mg/dL [facility] TRIGLYCERIDES 79 <150 mg/dL [facility] LDL-CHOLESTEROL 70 mg/dL (calc) [facility] Comment: Reference range: <100 Desirable range <100 mg/dL for primary prevention; <70 mg/dL for patients with CHD or diabetic patients with > or = 2 CHD risk factors. LDL-C is now calculated using the Gabby calculation, which is a validated novel method providing better accuracy than the Friedewald equation in the estimation of LDL-C. James SS et al. RHIANNA. 2013;310(19): 6814-8702 (http://education.SetJam/faq/JKY935) CHOL/HDLC RATIO 2.5 <5.0 (calc) [facility] [place] NON HDL CHOLESTEROL 86 <130 mg/dL (calc) [facility] [place] Comment: For patients with diabetes plus 1 major ASCVD risk factor, treating to a non-HDL-C goal of <100 mg/dL (LDL-C of <70 mg/dL) is considered a therapeutic option. Blood BLOOD SPECIMEN / Unknown 06/23/2024 4:00 PM BENCH TECHNICIAN 06/24/2024 3:24 AM BENCH TECHNICIAN Narrative [facility] - 06/27/2024 6:19 PM BENCH TECHNICIAN FASTING: UNKNOWN us Stephanie Barbosa MD CHEMISTRY Final Resul t [facility] [address] [place] [address], [facility] [address] [place] [address] * (ABNORMAL) CBC AND DIFFERENTIAL (06/23/2024 4:00 PM BENCH TECHNICIAN) [facility] WHITE BLOOD CELL COUNT 6.2 3.8 - [...] BLOOD SPECIMEN / Unknown 06/23/2024 4:00 PM BENCH TECHNICIAN 06/24/2024 3:24 AM BENCH TECHNICIAN Narrative [facility] - 06/27/2024 6:19 PM BENCH TECHNICIAN FASTING: UNKNOWN us Stephanie Barbosa MD HEMATOLOGY Final Resul t [facility] [address] [place] [address], [place] [phone] [facility] [address] [place] [place] [address] * URIC ACID (06/23/2024 4:00 PM BENCH TECHNICIAN) [facility] URIC ACID 4.4 2.5 - 7.0 mg/dL [facility] Comment: Therapeutic target for gout patients: <6.0 mg/dL Blood BLOOD SPECIMEN / Unknown 06/23/2024 4:00 PM BENCH TECHNICIAN 06/24/2024 3:24 AM BENCH TECHNICIAN Narrative [facility] - 06/27/2024 6:19 PM BENCH TECHNICIAN FASTING: UNKNOWN us Stephanie Barbosa MD CHEMISTRY Final Resul t Performing Organization Address [facility] Co de Phone Number [facility] [address] [place] [address], [place] [phone] [facility] [address] [place] [place] [address] * FOLIC ACID (06/23/2024 4:00 PM BENCH TECHNICIAN) [facility] FOLATE, SERUM >24.0 ng/mL [facility] Comment: Reference Range Low: <3.4 Borderline: 3.4-5.4 Normal: >5.4 Blood BLOOD SPECIMEN / Unknown 06/23/2024 4:00 PM BENCH TECHNICIAN 06/24/2024 3:24 AM BENCH TECHNICIAN Narrative [facility] - 06/27/2024 6:19 PM BENCH TECHNICIAN FASTING: UNKNOWN us Stephanie Barbosa MD CHEMISTRY Final Resul t Performing Organization Address [facility] Co de Phone Number [facility] [address] [place] [address], [place] [phone] [facility] [address] [place] [address] * FERRITIN (06/23/2024 4:00 PM BENCH TECHNICIAN) Pathologist [facility] FERRITIN 151 16 - 288 ng/mL [facility] Blood BLOOD SPECIMEN / Unknown 06/23/2024 4:00 PM BENCH TECHNICIAN 06/24/2024 3:24 AM BENCH TECHNICIAN Narrative [facility] - 06/27/2024 6:19 PM BENCH TECHNICIAN FASTING: UNKNOWN Stephanie Barbosa MD CHEMISTRY Final Resul t [facility] [address] [place] [address], [facility] [address] [place] [address] * (ABNORMAL) COMP METABOLIC PANEL (06/23/2024 4:00 PM BENCH TECHNICIAN) Pathologist [facility] GLUCOSE 85 65 - 99 mg/dL [facility] [...] BLOOD SPECIMEN / Unknown 06/23/2024 4:00 PM BENCH TECHNICIAN 06/24/2024 3:24 AM BENCH TECHNICIAN Narrative [facility] - 06/27/2024 6:19 PM BENCH TECHNICIAN FASTING: UNKNOWN us Stephanie Barbosa MD CHEMISTRY Final Resul t [facility] [address] [place] [address], [facility] [address] [place] [address] * (ABNORMAL) XR DXA BONE DENSITY 2 [...] to assess therapeutic efficacy. Teresa Lora PA-C [facility] 08/14/2022 Narrative 08/14/2022 8:16 AM CDT For Patients: Results are automatically released to your [employer] [facility] (Jiberish) account once available, in compliance with federal regulations. This means that you may see your results before your provider has had a chance to review them. Please allow 2-3 business days for your provider to comment on the results. XR DXA Bone Mineral Density (BMD) EXAM LOCATION: [facility] [address] [facility] [address] PATIENT NAME: Jennifer Garner DATE OF : [...] two scanners are made by the same assembler deck and hull. PROCEDURE: Dual-energy x-ray absorptiometry performed with routine [...] reggie Non-React reggie 02/17/2021 3:39 PM CDT [facility] Comment:Antibodies to HCV no t detected; does not exclude the possibility of exposure to HCV. Blood BLOOD SPECIMEN / Unknown Venipuncture / Unknown 02/16/2021 4:09 PM CDT 02/16/2021 4:09 PM CDT Stephanie Barbosa MD SEND OUTS Final Resul t [facility] [address] [place] [address], from Last 3 Months or Most Recently Relevant to Health Maintenance Insurance [facility] AV ATTN: SECOND [place] [address] MEDICARE PART A HB ONLY MEDICARE PART B HB ONLY [facility] MEDICARE ADVANTAGE MR Advance Directives * Full Code (Latest Code Status on File) Date Activated Date Inactivated Comments 03/03/2018 7:23 AM 03/07/2018 2:59 PM Care Teams Preliminary School Psychologist Relationship Specialty Start Date End Date Stephanie Barbosa MD [address] [place] [address] PCP - General Family Practice 02/16/21 James Colby MD [address] [place] [address] Gastroenterology 05/11/13 Rudy Gomez MD [address] [facility] [address] [place] [address] Rheumatology 09/05/22
[2024-07-27 13:45] LABS: Slide Review Reflex No
[2024-07-27 13:51] LABS: Chloride* 105 mmol/L (96-114); Potassium* 3.8 mmol/L (3.6-5.1); Sodium* 138 mmol/L (135-149)
[2024-07-27 13:54] LABS: Anion Gap 10 mEq/L (7-15); Blood Urea Nitrogen* 21 mg/dL (7-30); Calcium* 9.5 mg/dL (8.4-10.6); Carbon Dioxide* 23 mmol/L (20-32); Est. Creatinine Clearance* 36.67; Estimated Glomerular Filt Rate 58 ml/min; Glucose* 116 mg/dL (60-115)
[2024-07-27 14:10] LABS: Troponin I* < 0.01 ng/mL (0.01-0.04)
--- NOTE | 2024-07-27 16:02 | CRLHL7_ITS ---
For Patients: As a result of the Century Cures Act, medical imaging exams and procedure reports are released immediately into your electronic medical record. You may view this report before your referring provider. If you have questions, please contact your health care provider. Indication: Near syncope Technique: AP view of the chest. Comparison: None. Findings: Normal cardiomediastinal silhouette. Minimal right basilar opacity. Possible trace blunting of the right costophrenic angle. Partial visualization of suspected inferior vena cava filter. Impression: Minimal right basilar opacity with possible trace blunting of the right costophrenic angle may represent scarring or atelectasis with trace pleural effusion. Dictated by Clive Mejia MD @ 07/27/2024 4:53:26 PM (Electronically Signed)
[2024-07-27] MEDS: HYDROmorphone 0.5 mg/0.5 ml inj IVP (16:07)
--- NOTE | 2024-07-27 18:43 | P.IMHP_ITS ---
Assessment and Plan Assessment and plan (1) Fracture tibia/fibula: Status: Acute (2) Syncope: Problem comment: 07/27/2024 had a fall while standing in a line at the grocery store. Prodromal symptoms suggest vasovagal or neurocardiogenic syncope. Status: Acute (3) Rheumatoid arthritis: Problem comment: Sees Dr. Gomez for Rheumatology. On methotrexate 7.5 mg per week and folate Status: Acute (4) Hypertension: Status: Acute (5) Right thyroid nodule: Problem comment: Incidental finding on CT of the cervical spine on 07/27/2024. 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 Initiate VTE prophylaxis following surgery Status: Acute Plan Patient is admitted to the hospital for surgery for an unstable left tib-fib fracture. Ongoing cardiac monitoring and vital sign monitoring with will is probably a syncopal episode leading to the fracture. Plan for surgery tomorrow morning. Continue to address other chronic medical problems. I deem patient to be at increased risk for DVT and PE due to previous episode of DVT and PE. Recommend postop anticoagulation. Ongoing concern about mobility after surgery. Patient may need some additional rehabilitation prior to discharge to home. Recommend bisphosphonate therapy with vitamin-D and calcium due to her fragility fracture. Will need ongoing evaluation and management of unexplained weight loss as well. Total Time Spent Total Time Spent: Total time spent today is 80 minutes in coordination of care, review of outside records, discussion with patient and her daughter and other providers about ongoing evaluation management of her acute and chronic medical problems noted above Hospitalist- H&P: HPI History of Present Illness Date Seen: 07/27/24 Chief complaint: left ankle injury Narrative: Jennifer Garner is a 78 year old female with rheumatoid arthritis and hypertension admitted from the emergency department after a fall and injury at the grocery store. She was standing in the checkout line she felt nauseated, sweats and lightheadedness. She then fell or possibly lost consciousness briefly. She does not recall losing consciousness and thinks she remembers falling and being on the floor with her left foot pointing in the wrong direction. She reports she was otherwise feeling well today. She has not had any symptoms of illness, cold, cough, fever, shortness of breath, chest pain, palpitations, nausea, vomiting, abdominal pain, diarrhea, urinary problems, extremity edema. She did have brief nausea prior to falling down. She did not eat this morning prior to going shopping. She has had a poor appetite for some time and has had weight loss starting this summer. Her weight was stable until 10/03/2023 at 60.2 kg. January 14 her weight was 54.5 kg when she saw her doctor for an evaluation of weight loss and anemia. Her weight on June 23 was 51.2 kg. Current weight is pending. She reports that she does not have a very good appetite. She does not get abdominal pain or nausea when she eats. She has not had vomiting or diarrhea. She does not have early satiety. She has no trouble getting access to food. She has previous diagnosis of osteopenia. She has been on calcium and possibly vitamin-D supplementation. Her primary care provider offered Fosamax which she declined. Now that she has a fragility fracture she would benefit from Fosamax/bisphosphonate therapy Review of Systems Narrative: She reports no concerns other than her weight loss and current injury. [facility] Medical History (Updated 07/27/24 @ 19:03 by Marek Bai MD) Right thyroid nodule ?E04.1 - Nontoxic single thyroid nodule (ICD-10) Presence of inferior vena cava filter ?Z95.828 - Presence of other vascular implants and grafts (ICD-10) History of pulmonary embolism ?Z86.711 - Personal history of pulmonary embolism (ICD-10) Gout ?M10.9 - Gout, unspecified (ICD-10) Hypertension ?I10 - Essential (primary) hypertension (ICD-10) Rheumatoid arthritis ?M06.9 - Rheumatoid arthritis, unspecified (ICD-10) Surgical History (Updated 07/27/24 @ 18:55 by Marek Bai MD) History of inferior vena caval filter placement ?Z95.828 - Presence of other vascular implants and grafts (ICD-10) History of oophorectomy History of hysterectomy ?Z90.710 - Acquired absence of both cervix and uterus (ICD-10) History of appendectomy ?Z90.49 - Acquired absence of other specified parts of digestive tract (ICD- 10) Family History (Updated 07/27/24 @ 18:56 by Marek Bai MD) Sister Breast cancer Diabetes Paternal Grandmother Breast cancer Mother Bone cancer Brother Diabetes Heart disease Father Heart disease Social History (Updated 07/27/24 @ 18:57 by Marek Bai MD) Narrative: She lives alone in [place] in a 1st floor apartment in [facility]. Daughter Emily is healthcare power of [employer] transactions attorney. Code status is DNR. She does not smoke. She does not drink alcohol. What is your current living situation?: I presently have a place to live Problems where you live: no known problems Problems where you live details: none In the past 12 months, utilities in danger of being shut off: no In past 12 months, lack of transportation kept you from medical appts, meetings, work, or getting things needed for daily living: no In the past 12 mos, have been you worried that your food would run out before you had money to buy more?: never true In the past 12 mos, the food you bought just didn't last and you didn't have money to buy more?: never true Highest level of school completed/degree received: high school graduate Smoking Status: Never smoker Do you use any of these nicotine containing products: None How often do you have a drink containing alcohol: never AUDIT-C Alcohol total score: 0 Non-prescribed substance use: denies use How often does anyone, including family, friends and others, physically hurt you : never How often does anyone, including family, friends and others, insult or talk down to you: never How often does anyone, including family, friends and others, threaten you with harm: never How often does anyone, including family, friends and others, scream or curse at you: never service: No Meds Home Medications and Allergies Home Medications ?Medication ?Instructions ?Recorded ?Confirmed ?Type allopurinol 100 mg tablet 200 mg PO DAILY 07/27/24 07/27/24 History calcium 600 mg (as 1 tab PO BID 07/27/24 07/27/24 History carbonate)-vitamin D3 10 mcg (400 unit) tablet chlorthalidone 25 mg tablet 12.5 mg PO DAILY 07/27/24 07/27/24 History folic acid 1 mg tablet 1 mg PO DAILY 07/27/24 07/27/24 History lisinopril 20 mg tablet 20 mg PO DAILY 07/27/24 07/27/24 History methotrexate sodium 2.5 mg tablet 7.5 mg PO Q7D 07/27/24 07/27/24 History multivitamin with folic acid 400 1 tab PO DAILY 07/27/24 07/27/24 History mcg tablet (Daily-Mariama (with folic acid)) rosuvastatin 10 mg tablet 10 mg PO HS 07/27/24 07/27/24 History Allergies Allergy/AdvReac Type Severity Reaction Status Date / Time Penicillins Allergy Mild Rash Verified 07/27/24 17:25 Exam Narrative: Exam Narrative: She is alert and appears in no distress. She gives her own history. Eyes normal. Oropharynx normal. Neck is supple without mass or adenopathy. Respirations are clear to auscultation. Cardiovascular: S1, S2, regular rate and rhythm. Abdomen: Bowel sounds active. Abdomen is soft without tenderness or mass. Left lower extremity is in a bulky splint. She has intact sensation and motion in her toes. Right lower extremity is normal without edema. Intact pedal pulses. Const: Vital Signs, click to edit/add: Vital Signs - 24 hr 07/27/24 12:44 07/27/24 12:53 07/27/24 13:10 Temperature 97.6 F Pulse Rate 70 Pulse Rate [Pulse Oximeter] Pulse Rate [Right Pulse Oximeter] 79 Respiratory Rate 18 Blood Pressure Blood Pressure [Le ft Upper Arm] 199/66 H Blood Pressure [Ri ght Arm] Pulse Oximetry 99 99 Oxygen Delivery Me thod Room Air 07/27/24 13:12 07/27/24 13:15 07/27/24 13:58 Temperature Pulse Rate 73 74 92 Pulse Rate [Pulse Oximeter] Pulse Rate [Right Pulse Oximeter] Respiratory Rate Blood Pressure 177/84 H Blood Pressure [Le ft Upper Arm] Blood Pressure [Ri ght Arm] Pulse Oximetry 100 99 96 Oxygen Delivery Me thod 07/27/24 14:00 07/27/24 14:02 07/27/24 14:03 Temperature Pulse Rate 89 90 81 Pulse Rate [Pulse Oximeter] Pulse Rate [Right Pulse Oximeter] Respiratory Rate Blood Pressure 142/60 H Blood Pressure [Le ft Upper Arm] Blood Pressure [Ri ght Arm] Pulse Oximetry 100 100 100 Oxygen Delivery Me thod 07/27/24 14:23 07/27/24 14:30 07/27/24 14:32 Temperature Pulse Rate 84 83 83 Pulse Rate [Pulse Oximeter] Pulse Rate [Right Pulse Oximeter] Respiratory Rate Blood Pressure 146/52 H Blood Pressure [Le ft Upper Arm] Blood Pressure [Ri ght Arm] Pulse Oximetry 97 97 97 Oxygen Delivery Me thod 07/27/24 14:33 07/27/24 14:45 07/27/24 15:00 Temperature Pulse Rate 82 78 83 Pulse Rate [Pulse Oximeter] Pulse Rate [Right Pulse Oximeter] Respiratory Rate Blood Pressure Blood Pressure [Le ft Upper Arm] Blood Pressure [Ri ght Arm] Pulse Oximetry 97 99 97 Oxygen Delivery Me thod 07/27/24 15:02 07/27/24 15:15 07/27/24 15:32 Temperature Pulse Rate 84 76 Pulse Rate [Pulse Oximeter] Pulse Rate [Right Pulse Oximeter] Respiratory Rate Blood Pressure 112/97 H 165/69 H Blood Pressure [Le ft Upper Arm] Blood Pressure [Ri ght Arm] Pulse Oximetry 98 99 Oxygen Delivery Me thod 07/27/24 16:02 07/27/24 17:24 07/27/24 17:36 Temperature 98.0 F Pulse Rate Pulse Rate [Pulse Oximeter] 88 Pulse Rate [Right Pulse Oximeter] Respiratory Rate 18 18 Blood Pressure 172/69 H Blood Pressure [Le ft Upper Arm] Blood Pressure [Ri ght Arm] 124/81 Pulse Oximetry 98 98 Oxygen Delivery Me thod Room Air Room Air Documenting provider has reviewed patient's vital signs: yes Hospitalist - H&P: Result Labs Labs: Short CBC 07/27/24 Range/Units 13:31 WBC 5.25 (4.50-11.00) K/uL Hgb 10.9 L (12.0-16.0) gm/dL Hct 31.7 L (33.0-51.0) % Plt Count 140 (140-440) K/uL BMP 07/27/24 13:31 Sodium 138 Potassium 3.8 Chloride 105 Carbon Dioxide 23 BUN 21 Creatinine 1.0 Glucose 116 H Calcium 9.5 Cardiac Enzymes 07/27/24 Range/Units 13:31 Troponin I < 0.01 (0.01-0.04) ng/mL ECG Attestation: I personally reviewed and interpreted this ECG as follows: (Normal EKG) ECG interpretation date: 07/27/24 Imaging Tib fib x-ray: Radiologist's impression: Indication: Fall, leg deformity Technique: Two views left tibia fibula Comparison: None Findings/Impression: There is an oblique fracture of the distal tibial diaphysis with 7 millimeters lateral displacement of the distal fracture fragment. There is a corresponding fracture of the distal fibular diaphysis with 5 millimeters lateral displacement of the distal fracture fragment. Distal fibular fracture is mildly comminuted. Additionally, there is a fracture of the fibular neck without significant displacement. There is a lucency within the medial aspect of the proximal tibial metaphysis with adjacent sclerosis. This appears to be more anterior on the lateral view. This is more indeterminate on these views and could represent a subacute fracture or less likely a lucent bony lesion. Dedicated knee series may have improved characterization. Chest x-ray: Radiologist's impression: Indication: Near syncope Technique: AP view of the chest. Comparison: None. Findings: Normal cardiomediastinal silhouette. Minimal right basilar opacity. Possible trace blunting of the right costophrenic angle. Partial visualization of suspected inferior vena cava filter. Impression: Minimal right basilar opacity with possible trace blunting of the right costophrenic angle may represent scarring or atelectasis with trace pleural effusion. CT scan - head: Radiologist's impression: INDICATION: Fall, possible loss of consciousness TECHNIQUE: CT head without contrast. COMPARISON: None. FINDINGS: CSF spaces: Within normal limits for age. Brain parenchyma: The day-white differentiation is normal. No sign of mass, hemorrhage, or midline shift. Patchy low density within the deep white matter. Skull base and calvarium: The visualized paranasal sinuses and mastoid air cells demonstrate no acute or significant findings. The visualized orbits are grossly unremarkable. No skull fractures. Atherosclerosis. IMPRESSION: 1. No calvarial fracture or intracranial bleed. 2. Nonspecific white matter disease, likely microangiopathy. CT cervical spine: Radiologist's impression: [place] [address] Diagnostic Imaging Report Patient: Jennifer Garner MR#: [id number] : 1945 Acct:[id number] Loc: ED Service Date: 07/27/24 INDICATION: Fall, possible loss of consciousness. Distracting injury. TECHNIQUE: CT cervical spine without contrast. COMPARISON: None FINDINGS: Vertebrae: Alignment is normal. There are no fractures or suspicious bony lesions. Discs and facet joints: Mild facet hypertrophy and disc space narrowing C3-4 without significant stenosis. Disc space narrowing with posterior osteophytes at C5-6. Small posterior osteophytes cause mild right foraminal stenosis. Mild disc space narrowing and small osteophytes at C6-7 without significant stenosis. Facet hypertrophy C7-T1 without significant stenosis. Extraspinal findings: Atherosclerosis. Subcentimeter hypodensity at the junction of the right lobe of the thyroid gland and isthmus. IMPRESSION: 1. Mild degenerative changes cervical spine without evidence of cervical spine fracture. 2. Indeterminate right thyroid lesion. Suggest follow-up outpatient thyroid ultrasound.
--- NOTE | 2024-07-27 18:49 | PC.NURSE ---
End of Shift: Admitted to med surg at 1633. Patient pleasant and cooperative, A&O. VSS, afebrile. SpO2 maintained above 90% on RA. Patients left leg is splinted, non weight bearing tonight. Patient reported nausea this shift, managed with PRN medication, see MAR. Patient rates pain in left leg a 1-2 out of 10.
[2024-07-27] MEDS: OXYCODONE 5 MG TABLET PO ×2 (19:31→23:12)
[2024-07-27] MEDS: ACETAMINOPHEN 325 MG TABLET 650 MG PO ×2 (19:31→23:12)
[2024-07-27] MEDS: ROSUVASTATIN CALCIUM 10 MG TABLET PO (19:32)
[2024-07-27] MEDS: LACTATED RINGERS 1000 ML 1,000 ML 75 ML IV (20:58)
[2024-07-27] MEDS: SODIUM CHLORIDE 0.9 % (FLUSH) 10 ML SYRINGE 5 ML IVF (20:58)
[2024-07-28] VITALS (29 sets, daily range): BP systolic 107–170; BP diastolic 47–109; PULSE 59–85; RESP 14–18; TEMP 36.3–36.9; O2SAT 93–99
--- NOTE | 2024-07-28 03:36 | W.PM.CROSSCO ---
Subjective Subjective Interval history: patient noted to be confused, complaining of dysuria and polyuria. Urine is noted to be grossly fould. Assessment and Plan Assessment and plan (1) Fracture tibia/fibula: Status: Acute Plan UA ordered. Given symptoms, Abx has been ordered.
[2024-07-28 04:31] LABS: Appearance Urine Cloudy (Clear); Bilirubin Urine Negative (Negative); Blood Urine 1+ (Negative); Color Urine Yellow (Yellow); Glucose Urine Negative (Negative); Ketones Urine Negative (Negative); Leukocyte Esterase Urine Negative (Negative); Nitrite Urine Positive (Negative); Protein Urine 2+ (Negative); Urobilinogen Urine 0.2 (0.2-1.0); pH Urine 5.5 (5.0-8.5)
[2024-07-28 04:47] LABS: Bacteria Urine Many; RBC Urine 0-2 (0-2); Squamous Epithelial Cell Urine Few (None-Few)
[2024-07-28] MEDS: CIPROFLOXACIN 400 MG/200 ML PIGGYBACK 200 MG IVPB (05:28)
--- NOTE | 2024-07-28 06:01 | PC.NURSE ---
[id number] Pt slept on and off during night, pain controlled with prn oral pain medications. Ice applied to LLE around splint. NWB to LLE, using bedpan. urine cloudy and foul odor, UA completed, started on antibiotics, see eMAR. NPO since midnight. LLE warm to touch, cap refills <30 seconds, pt able to move toes, unable to palpate pedal pulse due to splint in place.
[2024-07-28] MEDS: ONDANSETRON 2 MG/ML inj 4 MG IVP ×3 (06:17→21:08)
--- NOTE | 2024-07-28 06:41 | PC.NURSE ---
[id number] Pt NWB to LLE, did not get out of bed, using bedpan and tolerating activity well. urine cloudy with strong odor, UA completed and abx started. ice applied to LLE around splint, tolerated well. intermittent nausea and vomiting at beginning and end of shift, prn zofran given with some relief, also applied aromatherapy patch to Left upper corner of gown. NPO since midnight.
--- NOTE | 2024-07-28 07:12 | P.ORCN_ITS ---
History of Present Illness HPI Date Seen: 07/28/24 Requesting physician: Marek Bai Chief complaint: left tibia fibula fracture Narrative: Amy is a pleasant 78-year-old female who sustained a left tibia/fibula fracture yesterday afternoon. Injury occurred following a presumed syncopal episode, which resulted in a fall while she was packing her groceries at the grocery store. Following the injury, he was brought to the hospital by EMS where x-rays revealed a displaced left tibia/fibula fracture. She was subsequent placed into a splint and admitted to the hospitalist service for further treatment. Of note, patient does have a prior history of DVT, but she is not currently on any anticoagulants. This morning, she denies any other injuries. She states that her left lower leg pain is well controlled, however she has experiencing some nausea secondary to the pain medications. [facility] Medical History (Updated 07/27/24 @ 19:03 by Marek Bai MD) Right thyroid nodule ?E04.1 - Nontoxic single thyroid nodule (ICD-10) Presence of inferior vena cava filter ?Z95.828 - Presence of other vascular implants and grafts (ICD-10) History of pulmonary embolism ?Z86.711 - Personal history of pulmonary embolism (ICD-10) Gout ?M10.9 - Gout, unspecified (ICD-10) Hypertension ?I10 - Essential (primary) hypertension (ICD-10) Rheumatoid arthritis ?M06.9 - Rheumatoid arthritis, unspecified (ICD-10) Surgical History (Updated 07/27/24 @ 18:55 by Marek Bai MD) History of inferior vena caval filter placement ?Z95.828 - Presence of other vascular implants and grafts (ICD-10) History of oophorectomy History of hysterectomy ?Z90.710 - Acquired absence of both cervix and uterus (ICD-10) History of appendectomy ?Z90.49 - Acquired absence of other specified parts of digestive tract (ICD- 10) Family History (Updated 07/27/24 @ 18:56 by Marek Bai MD) Sister Breast cancer Diabetes Paternal Grandmother Breast cancer Mother Bone cancer Brother Diabetes Heart disease Father Heart disease Social History (Updated 07/27/24 @ 18:57 by Marek Bai MD) Narrative: She lives alone in [place] in a 1st floor apartment in [facility]. Daughter Emily is healthcare power of winery cellar hand. Code status is DNR. She does not smoke. She does not drink alcohol. What is your current living situation?: I presently have a place to live Problems where you live: no known problems Problems where you live details: none In the past 12 months, utilities in danger of being shut off: no In past 12 months, lack of transportation kept you from medical appts, meetings, work, or getting things needed for daily living: no In the past 12 mos, have been you worried that your food would run out before you had money to buy more?: never true In the past 12 mos, the food you bought just didn't last and you didn't have money to buy more?: never true Highest level of school completed/degree received: high school graduate Smoking Status: Never smoker Do you use any of these nicotine containing products: None How often do you have a drink containing alcohol: never AUDIT-C Alcohol total score: 0 Non-prescribed substance use: denies use How often does anyone, including family, friends and others, physically hurt you : never How often does anyone, including family, friends and others, insult or talk down to you: never How often does anyone, including family, friends and others, threaten you with harm: never How often does anyone, including family, friends and others, scream or curse at you: never service: No Meds Home Medications and Allergies Home Medications ?Medication ?Instructions ?Recorded ?Confirmed ?Type allopurinol 100 mg tablet 200 mg PO DAILY 07/27/24 07/27/24 History calcium 600 mg (as 1 tab PO BID 07/27/24 07/27/24 History carbonate)-vitamin D3 10 mcg (400 unit) tablet chlorthalidone 25 mg tablet 12.5 mg PO DAILY 07/27/24 07/27/24 History folic acid 1 mg tablet 1 mg PO DAILY 07/27/24 07/27/24 History lisinopril 20 mg tablet 20 mg PO DAILY 07/27/24 07/27/24 History methotrexate sodium 2.5 mg tablet 7.5 mg PO Q7D 07/27/24 07/27/24 History multivitamin with folic acid 400 1 tab PO DAILY 07/27/24 07/27/24 History mcg tablet (Daily-Mariama (with folic acid)) rosuvastatin 10 mg tablet 10 mg PO HS 07/27/24 07/27/24 History Allergies Allergy/AdvReac Type Severity Reaction Status Date / Time Penicillins Allergy Mild Rash Verified 07/27/24 17:25 Ortho Exam Narrative Exam Narrative: General: Alert and oriented. In no apparent distress. Musculoskeletal: Left lower extremity was examined in the splint. Patient is able to actively flex and extend her toes without pain. Toes were warm and well perfused with intact sensation throughout. Const Vital Signs, click to edit/add: Vital Signs - 24 hr 07/27/24 12:44 07/27/24 12:53 07/27/24 13:10 Temperature 97.6 F Pulse Rate 70 Pulse Rate [Pulse Oximeter] Pulse Rate [Right Pulse Oximeter] 79 Respiratory Rate 18 Blood Pressure Blood Pressure [Left Upper Arm] 199/66 H Blood Pressure [Right Arm] Pulse Oximetry 99 99 Oxygen Delivery Method Room Air 07/27/24 13:12 07/27/24 13:15 07/27/24 13:58 Temperature Pulse Rate 73 74 92 Pulse Rate [Pulse Oximeter] Pulse Rate [Right Pulse Oximeter] Respiratory Rate Blood Pressure 177/84 H Blood Pressure [Left Upper Arm] Blood Pressure [Right Arm] Pulse Oximetry 100 99 96 Oxygen Delivery Method 07/27/24 14:00 07/27/24 14:02 07/27/24 14:03 Temperature Pulse Rate 89 90 81 Pulse Rate [Pulse Oximeter] Pulse Rate [Right Pulse Oximeter] Respiratory Rate Blood Pressure 142/60 H Blood Pressure [Left Upper Arm] Blood Pressure [Right Arm] Pulse Oximetry 100 100 100 Oxygen Delivery Method 07/27/24 14:23 07/27/24 14:30 07/27/24 14:32 Temperature Pulse Rate 84 83 83 Pulse Rate [Pulse Oximeter] Pulse Rate [Right Pulse Oximeter] Respiratory Rate Blood Pressure 146/52 H Blood Pressure [Left Upper Arm] Blood Pressure [Right Arm] Pulse Oximetry 97 97 97 Oxygen Delivery Method 07/27/24 14:33 07/27/24 14:45 07/27/24 15:00 Temperature Pulse Rate 82 78 83 Pulse Rate [Pulse Oximeter] Pulse Rate [Right Pulse Oximeter] Respiratory Rate Blood Pressure Blood Pressure [Left Upper Arm] Blood Pressure [Right Arm] Pulse Oximetry 97 99 97 Oxygen Delivery Method 07/27/24 15:02 07/27/24 15:15 07/27/24 15:32 Temperature Pulse Rate 84 76 Pulse Rate [Pulse Oximeter] Pulse Rate [Right Pulse Oximeter] Respiratory Rate Blood Pressure 112/97 H 165/69 H Blood Pressure [Left Upper Arm] Blood Pressure [Right Arm] Pulse Oximetry 98 99 Oxygen Delivery Method 07/27/24 16:02 07/27/24 17:24 07/27/24 17:36 Temperature 98.0 F Pulse Rate Pulse Rate [Pulse Oximeter] 88 Pulse Rate [Right Pulse Oximeter] Respiratory Rate 18 18 Blood Pressure 172/69 H Blood Pressure [Left Upper Arm] Blood Pressure [Right Arm] 124/81 Pulse Oximetry 98 98 Oxygen Delivery Method Room Air Room Air 07/27/24 19:00 07/27/24 23:00 07/27/24 23:00 Temperature 98.0 F 98.0 F Pulse Rate 76 Pulse Rate [Pulse Oximeter] 82 77 Pulse Rate [Right Pulse Oximeter] Respiratory Rate 18 18 Blood Pressure Blood Pressure [Left Upper Arm] Blood Pressure [Right Arm] 190/70 H 163/57 H Pulse Oximetry 98 98 Oxygen Delivery Method Room Air Room Air 07/28/24 02:34 Temperature 98.0 F Pulse Rate Pulse Rate [Pulse Oximeter] 77 Pulse Rate [Right Pulse Oximeter] Respiratory Rate 18 Blood Pressure Blood Pressure [Left Upper Arm] Blood Pressure [Right Arm] 145/59 H Pulse Oximetry 97 Oxygen Delivery Method Room Air Results Labs Labs: Laboratory Results - last 48 hr 07/27/24 07/28/24 13:31 04:26 WBC 5.25 RBC 3.36 L Hgb 10.9 L Hct 31.7 L MCV 94 MCH 32 MCHC 34 RDW Coeff of Gerber 14.7 Plt Count 140 Neut % (Auto) 77.3 H Lymph % (Auto) 15.6 L Hayes % (Auto) 5.7 Eos % (Auto) 0.6 Baso % (Auto) 0.4 Neut # (Auto) 4.10 Lymph # (Auto) 0.80 L Hayes # (Auto) 0.30 Eos # (Auto) 0.03 Baso # (Auto) 0.02 Abs Immat Gran (auto) 0.02 Imm/Tot Granulo (auto) 0.4 Sodium 138 Potassium 3.8 Chloride 105 Carbon Dioxide 23 Anion Gap 10 BUN 21 Creatinine 1.0 Estimated Creat Clear 36.67 Estimated GFR 58 Glucose 116 H Lactate 1.0 Calcium 9.5 Troponin I < 0.01 Urine Color Yellow Urine Appearance Cloudy A Urine pH 5.5 Ur Specific [place] 1.020 Urine Protein 2+ A Urine Glucose (UA) Negative Urine Ketones Negative Urine Blood 1+ A Urine Nitrite Positive A Urine Bilirubin Negative Urine Urobilinogen 0.2 Ur Leukocyte Esterase Negative Urine RBC 0-2 Urine WBC 5-10 A Ur Squamous Epith Cells Few Urine Bacteria Many A Diagnostic results Additional Comments: Left tibia/fibula x-rays performed 07/27/2024 were reviewed. These demonstrated a displaced, spiral fracture at the junction of the middle and distal thirds of the tibia. There are also mildly displaced fractures of the proximal fibular metaphysis, and distal fibular shaft. Assessment and Plan Assessment and plan (1) Fracture tibia/fibula: Status: Acute Assessment and Plan: Patient has a closed, displaced left tibia/fibula fracture. Risks and benefits of operative treatment and alternatives to surgery were discussed with the patient. . Recommendation was subsequently made for surgical intervention consisting of left tibia open reduction and internal fixation with an intramedullary nail to allow for early mobilization and advancement of weight-bearing, decreased pain, and healing of the fracture in a more anatomic position. Risks of surgery to include, but not limited to, infection, neurovascular injury, malunion, nonunion, deep vein thrombosis, pulmonary embolism, heart attack, stroke, and even were discussed with patient. All of her questions were answered. After discussion, she was in agreement with plan to proceed with surgery. Patient has been admitted to the hospitalist for perioperative medical management. She has been medically optimized and cleared for the planned surgical procedure . She is to remain on bedrest with plan for surgery this morning. She has been NPO after midnight for anticipated surgery. Total time spent: Total time spent is greater than 50% in coordination of care (as documented) at patient's floor/unit and/or counseling patient:
--- NOTE | 2024-07-28 07:23 | PM.ORPRC ---
Procedure Note Date of procedure: 07/28/24 Procedure: PREOPERATIVE DIAGNOSIS: 1. Left tibia shaft fracture, closed, displaced POSTOPERATIVE DIAGNOSES: 1. Left tibia shaft fracture, closed, displaced PROCEDURE: 1. Left tibia closed reduction and internal fixation with intramedullary nail 2. 76288 - Intraoperative fluoroscopy up to 1 hour SURGEON: Daniel Martin MD CALL CENTRE SUPERVISOR: Dai Jang P.A.-C.. An purchasing assistant was critical for this case to aid in patient positioning, suture manipulation, arm positioning, instrument positioning, and closure. ANESTHESIA: Spinal IMPLANTS: Synthes tibial advanced nail: 10 mm X 315 mm with 5 mm proximal and distal interlock screws; 0 mm end cap. EBL: 50ml COMPLICATIONS: None evident INDICATIONS: Amy is a 78-year-old female who sustained a left tibia fracture. Surgical stabilization of this fracture is recommended to allow for healing in a more anatomic position, decreased pain, early mobilization. Prior to procedure, risks and benefits of operative and non operative treatment were discussed with the patient. Risks of surgery to include but not limited to infection, neurovascular injury, malunion, nonunion, hardware complications, compartment syndrome, DVT, heart attack , stroke, and were discussed. After discussion of risks, benefits, and alternatives of surgery, informed consent was obtained and the operative extremity was marked. FINDINGS: Closed, displaced, spiral fracture of the distal tibial diaphysis. Minimally displaced proximal fibular metaphyseal fracture and mildly displaced, comminuted distal fibula diaphyseal fracture. PROCEDURE: The patient was seen preoperatively and operative site was marked. She was then brought to the operating room where spinal anesthesia was administered by anesthesia staff, and she was subsequently placed into the supine position on the OR table. 1 g IV Ancef was administered within 1 hr incision preoperatively. The operative extremity was then prepped and draped in usual sterile fashion using ChloraPrep. A surgical time-out was performed confirming patient identity, surgical site, and surgical procedure. The left lower extremity was flexed to approximately 20?. A midline longitudinal incision measuring approximately 4-5 cm was made extending proximally from the superior pole of patella. Incision was carried through subcutaneous tissues. Electrocautery was used to achieve hemostasis. The quadriceps tendon was identified and was split midline in line with the incision. The suprapatellar entry sheath was placed into the knee joint posterior to the patella and advanced to the anterior tibia. The starting guide pin was then drilled in the appropriate position in line with the medial aspect of the lateral intercondylar eminence on the AP view and on the anterior edge of the tibial plateau on the lateral view. Once the guide was confirmed to be in the correct position it was overdrilled with the starting reamer. Guide pin was then removed and replaced with the ball-tipped guidewire. Guide pin was placed into the intramedullary canal and advanced across the fracture while holding the fracture in a reduced position. Guide pin was seated down to the distal physeal scar in this center position of the distal tibia on AP and lateral images. Once the guide pin was in correct position, the tibial length was measured. To maintain reduction, 2 small stab incisions were placed near the fracture site. A pointed reduction clamp was then used to hold the fracture in an anatomically reduced position. The canal was then reamed sequentially beginning with 8 mm reamer up to the 11.5 mm reamer at which point good cortical contact was felt. At this point decision was made to proceed with the 10 mm x 315 mm tibial nail. After selecting the desired nail, the nail was attached to the insertion guide and advanced into the tibial canal. Fluoroscopic imaging was used to confirm fracture reduction and appropriate position of the nail proximally and distally. After the nail was advanced across the fracture site, the ball-tipped guidewire was removed. The nail was then fixed proximally with two medial to lateral interlock screws. Prior to drilling, small skin incisions were made and blunt dissection was used to dissect down to bone. Once drill holes been made, appropriate size screws were secured into position through the static holes. The nail was then fixed distally with two distal interlock screws which were placed in medial to lateral direction. Fluoroscopic imaging was used to obtain ?perfect circles? for screw placement. Prior to drilling, small skin incisions were made and blunt dissection was used to dissect down to bone. Once drill holes had been made, two low-profile 5 mm screws were placed. Fluoroscopic imaging confirmed correct screw length and position. The insertion guide was then removed and a 0 mm end cap was placed. Final fluoroscopic images were obtained in AP and lateral planes confirming anatomic reduction of the fracture and appropriate position and placement of the nail and interlock screws. The injury she has was then removed. The knee joint was then irrigated with copious amounts of normal saline. Quadriceps tendon was closed with #1 Vicryl [id number] interrupted sutures. All surgical incisions were then irrigated again with normal saline. Proximal incision was closed with 3-0 Vicryl inverted subcutaneous stitches followed by a running 3-0 Monocryl subcuticular stitch and Dermabond glue. The small stab incisions for the interlock screws were closed with 3-0 nylon simple interrupted sutures. Sterile dressings were applied followed by a short-leg posterior splint. Patient was then woken from anesthesia and transferred to the PACU in stable condition. POSTOPERATIVE PLAN: 1. Patient will be admitted to the hospital overnight for observation. 2. Weight-bearing status: Toe-touch weight-bearing left lower extremity 3. Elevate operative extremity 4. Pain control: - Acetaminophen and Oxycodone for pain as needed. -IV pain medications for breakthrough pain -Ice for pain and swelling 5. Postoperative prophylactic antibiotics x2 doses 6. DVT prophylaxis: - Xarelto 10 mg daily. for 35 days - SCDs non operative leg. 7. Follow-up in Orthopedic Clinic in 10-14 days for wound check and suture removal. Will initiate ankle range of motion and partial weight-bearing at that time.
[2024-07-28] MEDS: fentaNYL 100 MCG/2 ML inj IVP (07:30)
[2024-07-28] MEDS: MIDAZOLAM HCL 1 MG/ML inj IVP (07:30)
--- NOTE | 2024-07-28 07:37 | SUR.PREOP ---
Timeout at 0728 for block of left leg with MD Jose Del Cid, Alonzo Coffman RN, Rossana Barney RN present. Right patient, location and medication present.
[2024-07-28] MEDS: CEFAZOLIN 1 GM inj IVP (08:01)
[2024-07-28] MEDS: LACTATED RINGERS 500 ML 500 ML 125 ML IV (08:03)
--- NOTE | 2024-07-28 08:12 | CRLHL7_ITS ---
For Patients: As a result of the Century Cures Act, medical imaging exams and procedure reports are released immediately into your electronic medical record. You may view this report before your referring provider. If you have questions, please contact your health care provider. HISTORY: Intraoperative. TECHNIQUE: Fluoroscopy was provided intraoperatively for the orthopedic surgery service. COMPARISON: 07/27/2024. FINDINGS: Multiple intraoperative spot films demonstrate placement of an anterograde tibial rhonda with proximal and distal locking screws. This fixes a obliquely oriented tibial shaft fracture. The hardware appears intact and appropriately seated on these images. IMPRESSION: 1. Intraoperative antegrade tibial rodding of a tibial fracture. Dictated by Robert Trotter MD @ 07/29/2024 6:40:07 AM (Electronically Signed)
--- NOTE | 2024-07-28 08:55 | W.PM.NB ---
Nerve Block Nerve Block Time Seen by Provider: 07:35 Date Seen: 07/28/24 Type of block requested by surgeon for post-operative analgesia: popliteal Side: left Time out performed: Yes Verification of patient name: Yes Verification of date of : Yes Site marking: site marked Name of person performing procedure: Nehemias Continuous monitoring Was continuous monitoring of O2 sat, B/P, cardiac cath technologist, recorded every 15 minutes?: Yes Procedure Checklist: sterile prep, needles and gloves Ultrasound guided. Images saved: Yes Medications given in 5ml increments after negative aspiration: Marcaine %: 0.5 mL: 20 Needle gauge: 20 Patient tolerated procedure well: Yes Additional comments: Needle noted adjacent to nerve Block Charges Block Charge (with Pro Fee): Sciatic Nerve Use of Ultrasound Machine for Block: Yes- US Guidance/pain block
--- NOTE | 2024-07-28 08:56 | P.ANES_ITS ---
Anesthesia Charges Start Date/Time Anesthesia Start Date: 07/28/24 Anesthesia Start Time: 07:40 Stop Date/Time Anesthesia Stop Date: 07/28/24 Anesthesia Stop Time: 10:19 Summary Extremes of Age - Over 70 or under 1: MDA Coding CPT Codes CPT Codes: ANESTH LOWER LEG BONE SURG - 72351 ([id number]) P2 - PATIENT W/MILD SYST DISEASE, QK - FILM DRYING MACHINE OPERATOR 2-4 CNCRNT ANES PROC, QX - APPLIANCE TECHNICIAN SVC W/ MD MED DIRECTION Additional Codes: Summary - Extremes of Age - Over 70 or under 1: MDA ([id number])
--- NOTE | 2024-07-28 08:56 | W.PM.NB ---
Nerve Block Nerve Block Time Seen by Provider: 07:35 Date Seen: 07/28/24 Type of block requested by surgeon for post-operative analgesia: adductor canal Side: left Time out performed: Yes Verification of patient name: Yes Verification of date of : Yes Site marking: site marked Name of person performing procedure: Nehemias Continuous monitoring Was continuous monitoring of O2 sat, B/P, housing specialist, recorded every 15 minutes?: Yes Procedure Checklist: sterile prep, needles and gloves Ultrasound guided. Images saved: Yes Medications given in 5ml increments after negative aspiration: Marcaine %: 0.5 mL: 15 Needle gauge: 20 Patient tolerated procedure well: Yes Block Charges Block Charge (with Pro Fee): Femoral Nerve Use of Ultrasound Machine for Block: Yes- US Guidance/pain block
--- NOTE | 2024-07-28 08:56 | W.ANESCHARGE ---
Anesthesia Charges Start Date/Time Anesthesia Start Date: 07/28/24 Anesthesia Start Time: 07:40 Stop Date/Time Anesthesia Stop Date: 07/28/24 Anesthesia Stop Time: 10:19 Summary Extremes of Age - Over 70 or under 1: MDA Coding CPT Codes CPT Codes: ANESTH LOWER LEG BONE SURG - 21366 ([id number]) P2 - PATIENT W/MILD SYST DISEASE, QK - GETTERING FILAMENT MACHINE OPERATOR 2-4 CNCRNT ANES PROC, QX - VIBRATION ENGINEER SVC W/ MD MED DIRECTION Additional Codes: Summary - Extremes of Age - Over 70 or under 1: MDA ([id number])
--- NOTE | 2024-07-28 08:58 | NUTR.NU ---
RDN with MD consult for weight loss. Patient admitted with tibia/fibula fracture, requiring surgery. Patient is in OR now. Not appropriate to visit patient today. RDN will attempt to visit with patient tomorrow.
[2024-07-28] MEDS: LACTATED RINGERS 1000 ML 1,000 ML 100 ML IV ×3 (10:20→16:51)
--- NOTE | 2024-07-28 10:26 | P.ANES_ITS ---
Anesthesia Charges Start Date/Time Anesthesia Start Date: 07/28/24 Anesthesia Start Time: 07:40 Stop Date/Time Anesthesia Stop Date: 07/28/24 Anesthesia Stop Time: 10:19 Coding CPT Codes CPT Codes: ANESTH LOWER LEG BONE SURG - 10140 ([id number]) P2 - PATIENT W/MILD SYST DISEASE, QK - CAMPUS PRESIDENT 2-4 CNCRNT ANES PROC, QX - COMMODITIES BROKER SVC W/ MD MED DIRECTION
--- NOTE | 2024-07-28 10:26 | W.ANESCHARGE ---
Anesthesia Charges Start Date/Time Anesthesia Start Date: 07/28/24 Anesthesia Start Time: 07:40 Stop Date/Time Anesthesia Stop Date: 07/28/24 Anesthesia Stop Time: 10:19 Coding CPT Codes CPT Codes: ANESTH LOWER LEG BONE SURG - 62387 ([id number]) P2 - PATIENT W/MILD SYST DISEASE, QK - ANCHOR TACKER 2-4 CNCRNT ANES PROC, QX - TECHNICAL SALES ENGINEER SVC W/ MD MED DIRECTION
[2024-07-28] MEDS: MEPERIDINE 25 MG/ML INJ 12.5 MG IVP (10:35)
--- NOTE | 2024-07-28 11:27 | PM.IMPN1 ---
Assessment and Plan Assessment and plan (1) Fall: Problem comment: -DOI 07/27/24, mechanical from standing height -witnessed; prodromal sensation of heat/weakness. -continue monitoring and vasovagal measurement before discharge -UTI noted overnight Status: Acute (2) Syncope: Problem comment: 07/27/2024 had a fall while standing in a line at the grocery store. Prodromal symptoms suggest vasovagal or neurocardiogenic syncope. -reviewed labs; imaging. continue Telemetry. Status: Acute (3) UTI (urinary tract infection): Problem comment: -mild delirium overnight; confusion, incontinence. -cloudy urine; pos nitrite, 5-10WBCs, neg LE, many bacteria -one dose IV cipro am of 07/28, routine post op ancef for surgery, will start oral cefuroxime in the am pending culture results. 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 -Xarelto 10mg x 5 weeks Status: Acute (6) Weight loss: Problem comment: -addressed by PCP in Jun annual exam -9.3kg down from 06/29 to 06/30 Status: Acute (7) Hypertension: Problem comment: -continue home meds Status: Acute (8) Rheumatoid arthritis: Problem comment: Sees Dr. Gomez for Rheumatology. On methotrexate 7.5 mg per week and folate Status: Acute (9) Right thyroid nodule: Problem comment: Incidental finding on CT of the cervical spine on 07/27/2024. Outpatient follow-up with thyroid ultrasound Status: Acute Subjective Date Seen: 07/28/24 Interval history: Daily Progress Note - Hospital Medicine Day #: 2 Post OP day: Left tibia closed reduction and internal fixation with intramedullary nail CC: Fall causing fracture; operative repair indicated. 24 HOUR UPDATE: pt seemed confused overnight; mildly delirious. pain treated; UA ordered. appears a UTI is going on. There has been significant weight loss in the last year. daughter is bedside and expresses concern that her mom sleeps on a loveseat at a baseline, has two cats, doesn't drive, lives alone. no tobacco or alcohol use. Notable Labs, Micro, Rads, Interventions: mildly anemic (10.9 with normal MCV) - baseline 11.9 from 06/30 electrolytes and renal function normal. reviwed CXR other imaging and EPIC notes/labs. Dr. Barbosa - PCP Objective: Vitals: see above Lungs: Clear. Cardiac: S1S2. Disposition/Potential discharge - 2 days - likely will need rehab Today I spent 50minutes seeing the patient, reviewing Expanse and EPIC notes/diagnostics, discussing the care plan with our care time that includes social work, PT/OT, pharmacy, RT, assisted and documenting my impressions and plan in the medical record. Exam Const: Vital Signs, click to edit/add: Vital Signs - 24 hr 07/27/24 12:44 07/27/24 12:53 07/27/24 13:10 Temperature 97.6 F Pulse Rate 70 Pulse Rate [Pulse Oximeter] Pulse Rate [Right Pulse Oximeter] 79 Respiratory Rate 18 Blood Pressure Blood Pressure [Le ft Upper Arm] 199/66 H Blood Pressure [Ri ght Arm] Pulse Oximetry 99 99 Oxygen Delivery Me thod Room Air Oxygen Flow Rate Fraction of Inspir ed Oxygen 07/27/24 13:12 07/27/24 13:15 07/27/24 13:58 Temperature Pulse Rate 73 74 92 Pulse Rate [Pulse Oximeter] Pulse Rate [Right Pulse Oximeter] Respiratory Rate Blood Pressure 177/84 H Blood Pressure [Le ft Upper Arm] Blood Pressure [Ri ght Arm] Pulse Oximetry 100 99 96 Oxygen Delivery Me thod Oxygen Flow Rate Fraction of Inspir ed Oxygen 07/27/24 14:00 07/27/24 14:02 07/27/24 14:03 Temperature Pulse Rate 89 90 81 Pulse Rate [Pulse Oximeter] Pulse Rate [Right Pulse Oximeter] Respiratory Rate Blood Pressure 142/60 H Blood Pressure [Le ft Upper Arm] Blood Pressure [Ri ght Arm] Pulse Oximetry 100 100 100 Oxygen Delivery Me thod Oxygen Flow Rate Fraction of Inspir ed Oxygen 07/27/24 14:23 07/27/24 14:30 07/27/24 14:32 Temperature Pulse Rate 84 83 83 Pulse Rate [Pulse Oximeter] Pulse Rate [Right Pulse Oximeter] Respiratory Rate Blood Pressure 146/52 H Blood Pressure [Le ft Upper Arm] Blood Pressure [Ri ght Arm] Pulse Oximetry 97 97 97 Oxygen Delivery Me thod Oxygen Flow Rate Fraction of Inspir ed Oxygen 07/27/24 14:33 07/27/24 14:45 07/27/24 15:00 Temperature Pulse Rate 82 78 83 Pulse Rate [Pulse Oximeter] Pulse Rate [Right Pulse Oximeter] Respiratory Rate Blood Pressure Blood Pressure [Le ft Upper Arm] Blood Pressure [Ri ght Arm] Pulse Oximetry 97 99 97 Oxygen Delivery Me thod Oxygen Flow Rate Fraction of Inspir ed Oxygen 07/27/24 15:02 07/27/24 15:15 07/27/24 15:32 Temperature Pulse Rate 84 76 Pulse Rate [Pulse Oximeter] Pulse Rate [Right Pulse Oximeter] Respiratory Rate Blood Pressure 112/97 H 165/69 H Blood Pressure [Le ft Upper Arm] Blood Pressure [Ri ght Arm] Pulse Oximetry 98 99 Oxygen Delivery Me thod Oxygen Flow Rate Fraction of Inspir ed Oxygen 07/27/24 16:02 07/27/24 17:24 07/27/24 17:36 Temperature 98.0 F Pulse Rate Pulse Rate [Pulse Oximeter] 88 Pulse Rate [Right Pulse Oximeter] Respiratory Rate 18 18 Blood Pressure 172/69 H Blood Pressure [Le ft Upper Arm] Blood Pressure [Ri ght Arm] 124/81 Pulse Oximetry 98 98 Oxygen Delivery Me thod Room Air Room Air Oxygen Flow Rate Fraction of Inspir ed Oxygen 07/27/24 19:00 07/27/24 23:00 07/27/24 23:00 Temperature 98.0 F 98.0 F Pulse Rate 76 Pulse Rate [Pulse Oximeter] 82 77 Pulse Rate [Right Pulse Oximeter] Respiratory Rate 18 18 Blood Pressure Blood Pressure [Le ft Upper Arm] Blood Pressure [Ri ght Arm] 190/70 H 163/57 H Pulse Oximetry 98 98 Oxygen Delivery Me thod Room Air Room Air Oxygen Flow Rate Fraction of Inspir ed Oxygen 07/28/24 02:34 07/28/24 07:25 07/28/24 07:30 Temperature 98.0 F 97.9 F Pulse Rate Pulse Rate [Pulse Oximeter] 77 69 66 Pulse Rate [Right Pulse Oximeter] Respiratory Rate 18 16 14 Blood Pressure Blood Pressure [Le ft Upper Arm] Blood Pressure [Ri ght Arm] 145/59 H 149/63 H 135/47 L Pulse Oximetry 97 98 99 Oxygen Delivery Me thod Room Air Room Air Nasal Cannula Oxygen Flow Rate 6 Fraction of Inspir ed Oxygen 100 07/28/24 07:35 07/28/24 10:15 07/28/24 10:20 Temperature 97.4 F L Pulse Rate 85 81 Pulse Rate [Pulse Oximeter] 66 Pulse Rate [Right Pulse Oximeter] Respiratory Rate 14 14 14 Blood Pressure 129/62 133/55 L Blood Pressure [Le ft Upper Arm] Blood Pressure [Ri ght Arm] 139/48 L Pulse Oximetry 95 97 Oxygen Delivery Me thod Nasal Cannula Room Air Room Air Oxygen Flow Rate 6 Fraction of Inspir ed Oxygen 100 07/28/24 10:25 07/28/24 10:30 07/28/24 10:35 Temperature Pulse Rate 82 76 74 Pulse Rate [Pulse Oximeter] Pulse Rate [Right Pulse Oximeter] Respiratory Rate 16 16 16 Blood Pressure 107/66 140/51 H 150/60 H Blood Pressure [Le ft Upper Arm] Blood Pressure [Ri ght Arm] Pulse Oximetry 97 95 93 Oxygen Delivery Me thod Room Air Room Air Room Air Oxygen Flow Rate Fraction of Inspir ed Oxygen 07/28/24 10:40 07/28/24 10:45 Temperature 98.2 F Pulse Rate 69 71 Pulse Rate [Pulse Oximeter] Pulse Rate [Right Pulse Oximeter] Respiratory Rate 16 16 Blood Pressure 150/58 H 158/58 H Blood Pressure [Le ft Upper Arm] Blood Pressure [Ri ght Arm] Pulse Oximetry 96 97 Oxygen Delivery Me thod Room Air Room Air Oxygen Flow Rate Fraction of Inspir ed Oxygen Labs Labs: Laboratory Results - last 24 hr 07/27/24 07/28/24 13:31 04:26 WBC 5.25 RBC 3.36 L Hgb 10.9 L Hct 31.7 L MCV 94 MCH 32 MCHC 34 RDW Coeff of Gerber 14.7 Plt Count 140 Neut % (Auto) 77.3 H Lymph % (Auto) 15.6 L [place] % (Auto) 5.7 Eos % (Auto) 0.6 Baso % (Auto) 0.4 Neut # (Auto) 4.10 Lymph # (Auto) 0.80 L [place] # (Auto) 0.30 Eos # (Auto) 0.03 Baso # (Auto) 0.02 Abs Immat Gran (auto) 0.02 Imm/Tot Granulo (auto) 0.4 Sodium 138 Potassium 3.8 Chloride 105 Carbon Dioxide 23 Anion Gap 10 BUN 21 Creatinine 1.0 Estimated Creat Clear 36.67 Estimated GFR 58 Glucose 116 H Lactate 1.0 Calcium 9.5 Troponin I < 0.01 Urine Color Yellow Urine Appearance Cloudy A Urine pH 5.5 Ur Specific [place] 1.020 Urine Protein 2+ A Urine Glucose (UA) Negative Urine Ketones Negative Urine Blood 1+ A Urine Nitrite Positive A Urine Bilirubin Negative Urine Urobilinogen 0.2 Ur Leukocyte Esterase Negative Urine RBC 0-2 Urine WBC 5-10 A Ur Squamous Epith Cells Few Urine Bacteria Many A
[2024-07-28] MEDS: MORPHINE 2 MG/ML inj IVP ×2 (11:30→13:02)
[2024-07-28] MEDS: SODIUM CHLORIDE 0.9 % (FLUSH) 10 ML SYRINGE 5 ML IVF ×2 (11:40→21:08)
--- NOTE | 2024-07-28 14:40 | PC.SOCIAL ---
Discharge Planning: SW met with patient and patient's daughter Emily to discuss rehab. Patient discussed her worries and anxiety over her cats and loss of independence. Daughter offered patient a lot of support and guidance through patient's loss and grief of this situation. Daughter reports that herself, her daughter, and patient's neighbor will take care of patient's cats while she is in rehab. SW offered empathy and validation to patient as well. SW discussed rehab options and provided the list of local rehab facilities. Patient and daughter state their top choices are 1. [facility] in [place] 2. [facility] in [place] 3. [facility] in [place]. SW explained that once all information is gathered from OT/PT then SW can send referrals to rehab facilities and will be in touch with patient and daughter as SW hears back. SW to continue to follow patient throughout hospitalization.
[2024-07-28] MEDS: CEFAZOLIN 1 GM in 0.9 % SODIUM CHLORIDE Mini-bag 100 ML IVPB ×2 (15:16→22:32)
--- NOTE | 2024-07-28 15:33 | PC.NURSE ---
End of shift: VS WNL. Ice pack on left knee and ankle. Pain treated with IV pain med, treatment effective. Denies N/V and SOB. Ambulating 2 assist with GB/W. Tolerating regular diet.
--- NOTE | 2024-07-28 19:47 | PC.NURSE ---
Nursing Care Hours: [id number] Meal Miller training daytime nurse, see end of shift note. From [id number], pt up to BSC x1 for void. End of post op recovery without issue. Pt remains pain free, VSS, and ate dinner without issue. Foot still numb and unable to wiggle toes or feel touch but cap refill WNL and toes warm to touch. IV fluids continue to run d/t pt admitting she struggles to drink or eat enough and grant writer wants to prevent dehydration. Education provided on small frequent with high protein for tissue healing. Short term memory deficit apparent.
[2024-07-28] MEDS: RIVAROXABAN 10 MG TABLET PO (21:06)
[2024-07-28] MEDS: ACETAMINOPHEN 325 MG TABLET 650 MG PO (21:06)
[2024-07-28] MEDS: OXYCODONE 5 MG TABLET PO (21:07)
[2024-07-28] MEDS: ROSUVASTATIN CALCIUM 10 MG TABLET PO (21:07)
[2024-07-29] MEDS: ACETAMINOPHEN 325 MG TABLET 650 MG PO ×2 (02:14→08:45)
[2024-07-29] MEDS: OXYCODONE 5 MG TABLET PO (02:14)
[2024-07-29 03:00] VITALS: BP 137/55; PULSE 68; RESP 16; TEMP 36.5; O2SAT 97
--- NOTE | 2024-07-29 05:59 | PC.NURSE ---
End of shift report [id number]: Pleasant and cooperative with cares, patient having intermittent confusion as to where she is. LLE dressing and splint intact, CMS intact to E. Patient reports pain to left knee, pain well managed with current regimen. Transfers with A x 2 with walker and gait belt with TTWB to [facility]. Patient tolerated ambulating from chair to bed with walker and toe touch to foot. Denies any nausea. Continues to have frequency in urination, urine is straw in color and strong odor.
[2024-07-29 07:00] VITALS: BP 146/49; PULSE 65; RESP 16; TEMP 36.6; O2SAT 96
[2024-07-29 07:03] LABS: Anion Gap 6 mEq/L (7-15); Blood Urea Nitrogen* 21 mg/dL (7-30); Carbon Dioxide* 25 mmol/L (20-32); Chloride* 104 mmol/L (96-114); Potassium* 3.8 mmol/L (3.6-5.1); Sodium* 135 mmol/L (135-149)
[2024-07-29 07:04] LABS: Calcium* 8.3 mg/dL (8.4-10.6); Creatinine* 1.1 mg/dL (0.5-1.5); Est. Creatinine Clearance* 33.34; Estimated Glomerular Filt Rate 51 ml/min; Glucose* 110 mg/dL (60-115); Magnesium* 1.4 mg/dL (1.5-2.6)
[2024-07-29 07:36] LABS: Hematocrit 22.2 % (33.0-51.0); Mean Corpuscular HGB Conc 35 gm/dL (32-36); Mean Corpuscular Hemoglobin 33 pg (26-34); Mean Corpuscular Volume 95 fL (80-100); Platelet Count* 97 K/uL (140-440); Red Blood Count 2.35 m/uL (4.00-5.20); White Blood Count* 7.11 K/uL (4.50-11.00)
[2024-07-29 07:49] LABS: Slide Review Reflex No
[2024-07-29 07:51] LABS: Hemoglobin* 7.7 gm/dL (12.0-16.0)
[2024-07-29] MEDS: lisinopriL 20 MG TABLET PO (08:43)
[2024-07-29] MEDS: allopurinoL 100 MG TABLET 200 MG PO (08:43)
[2024-07-29] MEDS: CHLORTHALIDONE 25 MG TABLET 12.5 MG PO (08:44)
[2024-07-29] MEDS: RIVAROXABAN 10 MG TABLET PO (08:44)
[2024-07-29] MEDS: cefuroxime axetiL 500 MG TABLET PO ×2 (08:45→19:42)
[2024-07-29] MEDS: SODIUM CHLORIDE 0.9 % (FLUSH) 10 ML SYRINGE 5 ML IVF ×2 (08:46→21:18)
[2024-07-29 09:29] LABS: Iron* 29 ug/dL (37-170)
[2024-07-29 09:38] LABS: Percent Iron Saturation 13 % (20-50); Total Iron Binding Capacity 227 ug/dL (265-497)
--- NOTE | 2024-07-29 10:02 | PM.IMPN1 ---
Assessment and Plan Assessment and plan (1) Fall: Problem comment: -DOI 07/27/24, mechanical from standing height -witnessed; prodromal sensation of heat/weakness. -continue monitoring and vasovagal measurement before discharge -UTI noted overnight Status: Acute (2) Fracture tibia/fibula: Problem comment: Day 1 s/p left tibia closed reduction and internal fixation with IM nail (DOS: 07/28/24, Dr. Martin) Status: Acute (3) Syncope: Problem comment: 07/27/2024 had a fall while standing in a line at the grocery store. Prodromal symptoms suggest vasovagal or neurocardiogenic syncope. -reviewed labs; imaging. continue Telemetry. -pt does have GNR on UC - treating Status: Acute (4) ABLA (acute blood loss anemia): Problem comment: -did receive Xarelto, 10 mg the evening of surgery, and daily starting this morning. 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 -Xarelto 10mg x 5 weeks Status: Acute (8) Weight loss: Problem comment: -addressed by PCP in Jun annual exam -9.3kg down from 06/29 to 06/30 Status: Acute (9) Hypertension: Problem comment: -continue home meds Status: Acute (10) Rheumatoid arthritis: Problem comment: Sees Dr. Gomez for Rheumatology. On methotrexate 7.5 mg per week and folate Status: Acute (11) Right thyroid nodule: Problem comment: Incidental finding on CT of the cervical spine on 07/27/2024. Outpatient follow-up with thyroid ultrasound Status: Acute Subjective Date Seen: 07/29/24 Interval history: Daily Progress Note - Hospital Medicine Day #: 3 Post OP day: Left tibia closed reduction and internal fixation with intramedullary nail CC: Fall causing fracture; operative repair indicated. 24 HOUR UPDATE: pt seemed confused overnight; mildly delirious. pain treated; UA ordered. appears a UTI is going on. There has been significant weight loss in the last year. daughter is bedside and expresses concern that her mom sleeps on a loveseat at a baseline, has two cats, doesn't drive, lives alone. no tobacco or alcohol use. Notable Labs, Micro, Rads, Interventions: More anemic 10.9 --> 7.7. baseline 11.9 from Jun 2024. Iron deficient. 2 cell lines are down, platelets less than 100 (178 in Jun 2024, 140 on day of surgery) electrolytes and renal function normal. Mar 2024 - peripheral smear Concurrent laboratory studies show decreased folic acid, which could be contributing to the anemia and hypersegmented neutrophils. The elevated ferritin level argues against iron deficiency anemia. Other potential causes of normocytic anemia include anemia of chronic disease, anemia of renal insufficiency (EGFR = 54), anatomic blood loss and medication effect. There is no morphologic evidence of hemolysis. The specific etiology of the mild thrombocytopenia is not evident from the blood smear findings. The platelets are well granulated and show no evidence of increased platelet clumping. No microangiopathic red cell changes are present. No dysgranulopoiesis or circulating blasts are seen. Potential causes of thrombocytopenia include medication effect, infection, autoimmune disease and splenomegaly. Platelet count values between 100 and 150 x 109/L are also found in apparently healthy people, who?have <10% chance of developing more significant thrombocytopenia (persistent platelet?count <100 x 109/L) over 10-year follow-up. reviwed CXR other imaging and EPIC notes/labs. Dr. Barbosa - PCP Objective: comfortable. making conversation and states he pain control is ok. Vitals: see above Lungs: Clear. Cardiac: S1S2. left leg: splinted and wrapped. No obvious hematoma or extravasation. Orthopedics did rounds this morning. Disposition/Potential discharge - 2 days - likely will need rehab Today I spent 50minutes seeing the patient, reviewing Expanse and EPIC notes/diagnostics, discussing the care plan with our care time that includes social work, PT/OT, pharmacy, RT, group home and documenting my impressions and plan in the medical record. Exam Const: Vital Signs, click to edit/add: Vital Signs - 24 hr 07/28/24 10:15 07/28/24 10:20 07/28/24 10:25 Temperature 97.4 F L Pulse Rate 85 81 82 Pulse Rate [Pulse Oximeter] Respiratory Rate 14 14 16 Blood Pressure 129/62 133/55 L 107/66 Blood Pressure [Ri ght Arm] Pulse Oximetry 95 97 97 Oxygen Delivery Me thod Room Air Room Air Room Air 07/28/24 10:30 07/28/24 10:35 07/28/24 10:40 Temperature Pulse Rate 76 74 69 Pulse Rate [Pulse Oximeter] Respiratory Rate 16 16 16 Blood Pressure 140/51 H 150/60 H 150/58 H Blood Pressure [Ri ght Arm] Pulse Oximetry 95 93 96 Oxygen Delivery Me thod Room Air Room Air Room Air 07/28/24 10:45 07/28/24 10:50 07/28/24 11:05 Temperature 98.2 F 98 F 97.8 F Pulse Rate 71 67 66 Pulse Rate [Pulse Oximeter] Respiratory Rate 16 14 14 Blood Pressure 158/58 H 150/53 H 160/62 H Blood Pressure [Ri ght Arm] Pulse Oximetry 97 95 97 Oxygen Delivery Me thod Room Air Room Air 07/28/24 11:12 07/28/24 11:15 07/28/24 11:15 Temperature 98 F Pulse Rate 59 L 62 65 Pulse Rate [Pulse Oximeter] Respiratory Rate 14 Blood Pressure 170/63 H Blood Pressure [Ri ght Arm] Pulse Oximetry 97 97 96 Oxygen Delivery Me thod Room Air 07/28/24 11:17 07/28/24 11:30 07/28/24 11:30 Temperature 98.2 F Pulse Rate 66 65 66 Pulse Rate [Pulse Oximeter] Respiratory Rate 14 Blood Pressure 170/63 H 147/56 H Blood Pressure [Ri ght Arm] Pulse Oximetry 98 99 98 Oxygen Delivery Me thod Room Air 07/28/24 11:32 07/28/24 11:45 07/28/24 11:45 Temperature 98 F Pulse Rate 66 65 66 Pulse Rate [Pulse Oximeter] Respiratory Rate 14 Blood Pressure 147/56 H 157/62 H Blood Pressure [Ri ght Arm] Pulse Oximetry 97 95 97 Oxygen Delivery Me thod Room Air 07/28/24 11:47 07/28/24 12:00 07/28/24 12:00 Temperature 98.2 F Pulse Rate 66 65 65 Pulse Rate [Pulse Oximeter] Respiratory Rate 14 Blood Pressure 157/62 H 156/72 H Blood Pressure [Ri ght Arm] Pulse Oximetry 99 97 96 Oxygen Delivery Me thod Room Air 07/28/24 12:02 07/28/24 12:15 07/28/24 12:30 Temperature 98.5 F Pulse Rate 68 63 70 Pulse Rate [Pulse Oximeter] Respiratory Rate 14 Blood Pressure 156/72 H 141/109 H Blood Pressure [Ri ght Arm] Pulse Oximetry 96 96 98 Oxygen Delivery Me thod Room Air 07/28/24 13:00 07/28/24 14:00 07/28/24 15:00 Temperature 97.7 F 98 F Pulse Rate 66 68 Pulse Rate [Pulse Oximeter] 73 Respiratory Rate 16 16 16 Blood Pressure 154/59 H 160/51 H Blood Pressure [Ri ght Arm] Pulse Oximetry 99 98 Oxygen Delivery Va thod Room Air Room Air 07/28/24 15:00 07/28/24 15:00 07/28/24 19:00 Temperature 98.0 F Pulse Rate 75 Pulse Rate [Pulse Oximeter] 80 Respiratory Rate 16 16 Blood Pressure Blood Pressure [Ri ght Arm] 148/58 H Pulse Oximetry 98 97 Oxygen Delivery Me thod Room Air Room Air 07/28/24 23:00 07/28/24 23:00 07/28/24 23:00 Temperature Pulse Rate 66 Pulse Rate [Pulse Oximeter] 68 Respiratory Rate 18 18 Blood Pressure Blood Pressure [Ri ght Arm] Pulse Oximetry 95 Oxygen Delivery Va thod Room Air 07/28/24 23:00 07/29/24 03:00 Temperature 98.0 F 97.7 F Pulse Rate Pulse Rate [Pulse Oximeter] 68 68 Respiratory Rate 18 16 Blood Pressure Blood Pressure [Ri ght Arm] 131/52 L 137/55 L Pulse Oximetry 95 97 Oxygen Delivery Me thod Room Air Room Air Labs Labs: Laboratory Results - last 24 hr 07/29/24 06:04 WBC 7.11 RBC 2.35 L Hgb 7.7 L* Hct 22.2 L MCV 95 MCH 33 MCHC 35 Plt Count 97 L Sodium 135 Potassium 3.8 Chloride 104 Carbon Dioxide 25 Anion Gap 6 L BUN 21 Creatinine 1.1 Estimated Creat Clear 33.34 Estimated GFR 51 Glucose 110 Calcium 8.3 L Magnesium 1.4 L Iron 29 L TIBC 227 L % Saturation 13 L
--- NOTE | 2024-07-29 10:14 | P.ORPN_ITS ---
Subjective Subjective Time Seen by Provider: 09:45 Date Seen: 07/29/24 Principal diagnosis: Day 1 s/p left tibia closed reduction and internal fixation with IM nail Interval history: Amy is resting comfortably in her recliner. Daughter, Emily, is present during our visit. Amy reports very minimal left knee pain that is well managed with Tylenol. Admits to left great toe numbness (block related) and constant chills (not new since surgery). Denies chest pain, SOB, fever, nausea and vomiting. Denies postop bowel movement, but admits to flatulence. Hgb this AM: 7.7. Hgb 07/27/24 was 10.9. Patient reports a history of chronic an emia. Denies lightheadedness, dizziness at rest and with ambulation. Amy mentioned an upcoming elective dental appointment, which will need to be rescheduled until 5 weeks postoperative (once off Xarelto). Ortho Exam Narrative Exam Narrative: Patient is alert and oriented x3. No acute distress. Converses with nonlabored breathing. Night splint in place. Left lower extremity exam: 2 proximal Mepilex bandages clean/dry/intact - unable to see all bandages due to rd wrap. Rd wrap is dry without signs of drainage. Anterior, lateral, and posterior compartments were soft and compressible. Moderate left ankle swelling/edema. 2+ DP and PT pulses. [place] digits with brisk capillary refill. Able to wiggle toes appropriately. Left great toe numb. Sensation intact 2nd-5th toes. Const Vital Signs, click to edit/add: Vital Signs - 24 hr 07/28/24 10:15 07/28/24 10:20 07/28/24 10:25 Temperature 97.4 F L Pulse Rate 85 81 82 Pulse Rate [Pulse Oximeter] Respiratory Rate 14 14 16 Blood Pressure 129/62 133/55 L 107/66 Blood Pressure [Right Arm] Pulse Oximetry 95 97 97 Oxygen Delivery Method Room Air Room Air Room Air 07/28/24 10:30 07/28/24 10:35 07/28/24 10:40 Temperature Pulse Rate 76 74 69 Pulse Rate [Pulse Oximeter] Respiratory Rate 16 16 16 Blood Pressure 140/51 H 150/60 H 150/58 H Blood Pressure [Right Arm] Pulse Oximetry 95 93 96 Oxygen Delivery Method Room Air Room Air Room Air 07/28/24 10:45 07/28/24 10:50 07/28/24 11:05 Temperature 98.2 F 98 F 97.8 F Pulse Rate 71 67 66 Pulse Rate [Pulse Oximeter] Respiratory Rate 16 14 14 Blood Pressure 158/58 H 150/53 H 160/62 H Blood Pressure [Right Arm] Pulse Oximetry 97 95 97 Oxygen Delivery Method Room Air Room Air 07/28/24 11:12 07/28/24 11:15 07/28/24 11:15 Temperature 98 F Pulse Rate 59 L 62 65 Pulse Rate [Pulse Oximeter] Respiratory Rate 14 Blood Pressure 170/63 H Blood Pressure [Right Arm] Pulse Oximetry 97 97 96 Oxygen Delivery Method Room Air 07/28/24 11:17 07/28/24 11:30 07/28/24 11:30 Temperature 98.2 F Pulse Rate 66 65 66 Pulse Rate [Pulse Oximeter] Respiratory Rate 14 Blood Pressure 170/63 H 147/56 H Blood Pressure [Right Arm] Pulse Oximetry 98 99 98 Oxygen Delivery Method Room Air 07/28/24 11:32 07/28/24 11:45 07/28/24 11:45 Temperature 98 F Pulse Rate 66 65 66 Pulse Rate [Pulse Oximeter] Respiratory Rate 14 Blood Pressure 147/56 H 157/62 H Blood Pressure [Right Arm] Pulse Oximetry 97 95 97 Oxygen Delivery Method Room Air 07/28/24 11:47 07/28/24 12:00 07/28/24 12:00 Temperature 98.2 F Pulse Rate 66 65 65 Pulse Rate [Pulse Oximeter] Respiratory Rate 14 Blood Pressure 157/62 H 156/72 H Blood Pressure [Right Arm] Pulse Oximetry 99 97 96 Oxygen Delivery Method Room Air 07/28/24 12:02 07/28/24 12:15 07/28/24 12:30 Temperature 98.5 F Pulse Rate 68 63 70 Pulse Rate [Pulse Oximeter] Respiratory Rate 14 Blood Pressure 156/72 H 141/109 H Blood Pressure [Right Arm] Pulse Oximetry 96 96 98 Oxygen Delivery Method Room Air 07/28/24 13:00 07/28/24 14:00 07/28/24 15:00 Temperature 97.7 F 98 F Pulse Rate 66 68 Pulse Rate [Pulse Oximeter] 73 Respiratory Rate 16 16 16 Blood Pressure 154/59 H 160/51 H Blood Pressure [Right Arm] Pulse Oximetry 99 98 Oxygen Delivery Method Room Air Room Air 07/28/24 15:00 07/28/24 15:00 07/28/24 19:00 Temperature 98.0 F Pulse Rate 75 Pulse Rate [Pulse Oximeter] 80 Respiratory Rate 16 16 Blood Pressure Blood Pressure [Right Arm] 148/58 H Pulse Oximetry 98 97 Oxygen Delivery Method Room Air Room Air 07/28/24 23:00 07/28/24 23:00 07/28/24 23:00 Temperature Pulse Rate 66 Pulse Rate [Pulse Oximeter] 68 Respiratory Rate 18 18 Blood Pressure Blood Pressure [Right Arm] Pulse Oximetry 95 Oxygen Delivery Method Room Air 07/28/24 23:00 07/29/24 03:00 Temperature 98.0 F 97.7 F Pulse Rate Pulse Rate [Pulse Oximeter] 68 68 Respiratory Rate 18 16 Blood Pressure Blood Pressure [Right Arm] 131/52 L 137/55 L Pulse Oximetry 95 97 Oxygen Delivery Method Room Air Room Air Assessment and Plan Assessment and plan (1) Fracture tibia/fibula: Problem details: Day 1 s/p left tibia closed reduction and internal fixation with IM nail (DOS: 07/28/24, Dr. Martin) Status: Acute Assessment and Plan: - Night splint to be worn daily. - For pain management, ice, Tylenol and Oxycodone PRN. For swelling reduction, I recommend elevation of the left lower extremity above heart. - Toe-touch weight-bearing left lower extremity. - PT/OT consults. - For DVT prophylaxis: Xarelto 10 mg daily for 35 days - I anticipate patient will require SNF. Amy will follow-up in 10-14 days postop with myself for wound check and suture removal. At that time, we will advance to partial weightbearing and will initiate ankle range of motion. - Regarding her upcoming elective dental appointment, this appointment will need to be rescheduled until at least 5 weeks postoperative (once off Xarelto). - Phone Orthopedics with any questions or concerns.
[2024-07-29] MEDS: MAGNESIUM IV 4 GM/100 ML PIGGYBACK IVPB (10:15)
[2024-07-29 10:31] VITALS: BMI 24.3
[2024-07-29 11:00] VITALS: BP 148/47; PULSE 64; PULSE 70; RESP 18; TEMP 36.4; O2SAT 95
[2024-07-29] MEDS: FOLIC ACID 1 MG TABLET PO (11:49)
--- NOTE | 2024-07-29 13:24 | PC.SOCIAL ---
Addendum entered and electronically signed by Shannan Perez LCSW 07/29/24 16:03: SW spoke with Alexandria from [facility] who states they can accept patient on Saturday. Alexandria asked for updates to be sent tomorrow along with the time she will be coming. SW met with patient and informed her that she has been accepted to [facility]. Patient was happy about this but had concerns about how to pay. SW informed that insurance would cover rehab. SW spoke with patient's daughter Emily [phone] to arrange transportation. Daughter states that she can likely bring patient, but doesn't know the time she can come yet as she needs to talk to her boss. Daughter asked about other options if needed. SW reviewed non-emergent transportation and the cost associated it with. SW explained that a different SW would follow-up tomorrow to determine what their plan will be for transport. Original Note: Discharge Planning: SW sent referral to [facility] to determine if they have bed availability for patient to discharge on 07/31.
[2024-07-29 14:19] LABS: Basophils Absolute Auto 0.02 K/uL (0.00-0.30); Basophils Percent Auto 0.2 % (0.0-3.0); Eosinophils Absolute Auto 0.03 K/uL (0.00-0.50); Eosinophils Percent Auto 0.3 % (0.0-7.0); Hematocrit 25.5 % (33.0-51.0); Hemoglobin* 8.8 gm/dL (12.0-16.0); Immature Granulocytes Abs Auto 0.01 K/uL (0.00-0.30); Immature Granulocytes Pct Auto 0.1 %; Lymphocytes Percent Auto 16.3 % (20-44); Mean Corpuscular HGB Conc 35 gm/dL (32-36); Mean Corpuscular Hemoglobin 33 pg (26-34); Mean Corpuscular Volume 95 fL (80-100); Neutrophils Percent Auto 77.1 % (42.0-72.0); Platelet Count* 124 K/uL (140-440); RDW Coefficient of Variation % 14.5 % (11.5-15.5); Red Blood Count 2.69 m/uL (4.00-5.20); White Blood Count* 9.51 K/uL (4.50-11.00)
[2024-07-29 15:00] VITALS: BP 144/57; PULSE 63; PULSE 64; RESP 16; TEMP 36.4; O2SAT 98
[2024-07-29 15:06] LABS: Slide Review Reflex No
--- NOTE | 2024-07-29 18:47 | PC.NURSE ---
End of shift report: VS WNL, afebrile. Pleasantly confused. Denies nausea. Denies pain at rest and verbalizes some pain with movement but denies need for pain med. Tolerates regular diet and states she has a poor appetite. Ambulates 2 assist with GB, W, TTWB. Dressing on left knee C/D/I. IV in R wrist is SL. Utilizes the bedside commode. Has not had a BM this shift.
[2024-07-29 21:10] VITALS: BP 154/53; PULSE 70; RESP 18; TEMP 36.7; O2SAT 96
[2024-07-29] MEDS: ROSUVASTATIN CALCIUM 10 MG TABLET PO (21:17)
[2024-07-29 23:00] VITALS: PULSE 71
[2024-07-30] VITALS (8 sets, daily range): BP systolic 145–178; BP diastolic 47–77; PULSE 62–87; RESP 17–19; TEMP 36.6–37.2; O2SAT 96–98
[2024-07-30] MEDS: OXYCODONE 5 MG TABLET PO ×2 (01:31→21:17)
[2024-07-30] MEDS: ACETAMINOPHEN 325 MG TABLET 650 MG PO ×2 (01:31→21:16)
--- NOTE | 2024-07-30 07:52 | PC.NURSE ---
Patient pleasant and alert. Used the bedpan during the night to urinate. Was given PRN oxycodone and Tylenol for pain in her left knee rated 10/10. Patient reports was effective.
[2024-07-30] MEDS: CHLORTHALIDONE 25 MG TABLET 12.5 MG PO (08:13)
[2024-07-30] MEDS: allopurinoL 100 MG TABLET 200 MG PO (08:13)
[2024-07-30] MEDS: lisinopriL 20 MG TABLET PO (08:13)
[2024-07-30] MEDS: cefuroxime axetiL 500 MG TABLET PO ×2 (08:13→17:40)
[2024-07-30] MEDS: FOLIC ACID 1 MG TABLET PO (08:13)
[2024-07-30] MEDS: SODIUM CHLORIDE 0.9 % (FLUSH) 10 ML SYRINGE 5 ML IVF ×2 (08:13→21:11)
[2024-07-30] MEDS: RIVAROXABAN 10 MG TABLET PO (08:13)
[2024-07-30 08:23] LABS: Hematocrit 26.1 % (33.0-51.0); Hemoglobin* 8.8 gm/dL (12.0-16.0); Mean Corpuscular HGB Conc 34 gm/dL (32-36); Mean Corpuscular Hemoglobin 32 pg (26-34); Mean Corpuscular Volume 96 fL (80-100); Platelet Count* 138 K/uL (140-440); Red Blood Count 2.73 m/uL (4.00-5.20); White Blood Count* 8.18 K/uL (4.50-11.00)
[2024-07-30] MEDS: SENNOSIDES/DOCUSATE TABLET PO ×2 (08:32→21:08)
[2024-07-30 08:36] LABS: Slide Review Reflex No
[2024-07-30 08:40] LABS: Albumin* 3.5 g/dL (3.3-5.0); Chloride* 104 mmol/L (96-114); Potassium* 3.8 mmol/L (3.6-5.1); Sodium* 138 mmol/L (135-149)
[2024-07-30 08:43] LABS: Anion Gap 5 mEq/L (7-15); Blood Urea Nitrogen* 20 mg/dL (7-30); Carbon Dioxide* 29 mmol/L (20-32); Est. Creatinine Clearance* 36.67; Estimated Glomerular Filt Rate 58 ml/min; Phosphorus* 2.3 mg/dL (2.5-4.5)
[2024-07-30 08:44] LABS: Calcium* 8.7 mg/dL (8.4-10.6); Glucose* 91 mg/dL (60-115)
--- NOTE | 2024-07-30 09:04 | PM.IMPN1 ---
Assessment and Plan Assessment and plan (1) Fracture tibia/fibula: Problem comment: Day 1 s/p left tibia closed reduction and internal fixation with IM nail (DOS: 07/28/24, Dr. Martin) Status: Acute (2) Fall: Problem comment: -DOI 07/27/24, mechanical from standing height -witnessed; prodromal sensation of heat/weakness. -continue monitoring and vasovagal measurement before discharge -UTI noted overnight Status: Acute (3) ABLA (acute blood loss anemia): Problem comment: -Pt states that she has hx of Chronic Anemia, likely 2/2 RA, MTX med. -did receive Xarelto, 10 mg the evening of surgery, and daily starting this morning. -trending Hb -transfusion if Hb < 7 or symptomatic. -Notable Labs, Micro, Rads, Interventions: More anemic 10.9 --> 7.7. baseline 11.9 from Jun 2024. Iron deficient. 2 cell lines are down, platelets less than 100 (178 in Jun 2024, 140 on day of surgery) electrolytes and renal function normal. Mar 2024 - peripheral smear Concurrent laboratory studies show decreased folic acid, which could be contributing to the anemia and hypersegmented neutrophils. The elevated ferritin level argues against iron deficiency anemia. Other potential causes of normocytic anemia include anemia of chronic disease, anemia of renal insufficiency (EGFR = 54), anatomic blood loss and medication effect. There is no morphologic evidence of hemolysis. The specific etiology of the mild thrombocytopenia is not evident from the blood smear findings. The platelets are well granulated and show no evidence of increased platelet clumping. No microangiopathic red cell changes are present. No dysgranulopoiesis or circulating blasts are seen. Potential causes of thrombocytopenia include medication effect, infection, autoimmune disease and splenomegaly. Platelet count values between 100 and 150 x 109/L are also found in apparently healthy people, who?have <10% chance of developing more significant thrombocytopenia (persistent platelet?count <100 x 109/L) over 10-year follow-up. 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 -Ortho recs Xarelto 10mg x 5 weeks Status: Acute (5) Rheumatoid arthritis: Problem comment: Sees Dr. Gomez for Rheumatology. On methotrexate 7.5 mg per week and folate Status: Acute (6) Hypertension: Problem comment: -continue home meds Status: Acute (7) Syncope: Problem comment: 07/27/2024 had a fall while standing in a line at the grocery store. Prodromal symptoms suggest vasovagal or neurocardiogenic syncope. -reviewed labs; imaging. continue Telemetry. -pt does have GNR on UC - treating Status: Acute (8) Right thyroid nodule: Problem comment: Incidental finding on CT of the cervical spine on 07/27/2024. Outpatient follow-up with thyroid ultrasound Status: Acute (9) UTI (urinary tract infection): Problem comment: -mild delirium overnight; confusion, incontinence. -cloudy urine; pos nitrite, 5-10WBCs, neg LE, many bacteria -one dose IV cipro am of 07/28, routine post op ancef for surgery, will start oral cefuroxime am of 07/29 for GNR on culture Status: Acute (10) Weight loss: Problem comment: -addressed by PCP in Jun annual exam -9.3kg down from 06/29 to 06/30 Status: Acute (11) Postoperative delirium: Problem comment: -corporate staff accountant reporting confusion at night -MoCA (Tadeo Cognitive Assessment) done -07/30: pt not deleious upon my exam (3 visits on 07/30). Status: Resolved Total Time Spent Total Time Spent: Today I spent 50 minutes seeing the patient, reviewing Expanse and EPIC notes/diagnostics, discussing the care plan with our care time that includes social work, PT/OT, pharmacy, RT, fdc and documenting my impressions and plan in the medical record. Subjective Date Seen: 07/30/24 Interval history: Patient seen and examined at bedside. She states that she feels okay today. Discussed with the patient the need for follow-up for hemoglobin and the need for Xarelto/blood tender use to prevent DVT/PE for the next 35 days per orthopedic recommendations. Patient states that she understands that she needs to do these follow-up labs upon discharge. Hemoglobin stable today at 8.8, it was 8.8 yesterday evening. Will continue monitoring. Denies CP, SOB or lightheadedness upon ambulation. Exam Narrative: Exam Narrative: Physical exam GENERAL: Comfortable, no acute distress. HEAD AND NECK: Atraumatic, normocephalic CARDIOVASCULAR: RRR. Normal S1, S2. No murmurs. RESPIRATORY: Clear to auscultation B/L. Good air entry B/L. No wheezes or rhonchi. GASTROINTESTINAL: Not distended, not tender to palpation. NEUROLOGY: Alert, awake, oriented X 3. Normal speech. MSK: dressing LLE. PSYCH: Normal mood, normal affect. Const: Vital Signs, click to edit/add: Vital Signs - 24 hr 07/29/24 11:00 07/29/24 11:00 07/29/24 15:00 Temperature 97.6 F Pulse Rate 64 63 Pulse Rate [Pulse Oximeter] 70 Respiratory Rate 18 Blood Pressure [Ri ght Arm] 148/47 H Pulse Oximetry 95 Oxygen Delivery Me thod Room Air 07/29/24 15:00 07/29/24 15:00 07/29/24 15:00 Temperature 97.5 F L Pulse Rate Pulse Rate [Pulse Oximeter] 64 64 Respiratory Rate 16 16 Blood Pressure [Ri ght Arm] 144/57 H Pulse Oximetry 98 98 Oxygen Delivery Oh thod Room Air Room Air 07/29/24 21:10 07/29/24 23:00 07/30/24 01:23 Temperature 98.1 F 98.9 F Pulse Rate 71 Pulse Rate [Pulse Oximeter] 70 84 Respiratory Rate 18 18 Blood Pressure [Ri ght Arm] 154/53 H 178/63 H Pulse Oximetry 96 97 Oxygen Delivery Oh thod Room Air Room Air 07/30/24 01:23 07/30/24 03:00 07/30/24 07:00 Temperature 98.5 F Pulse Rate 62 Pulse Rate [Pulse Oximeter] 70 Respiratory Rate 18 17 Blood Pressure [Ri ght Arm] 147/51 H Pulse Oximetry 97 96 Oxygen Delivery Oh thod Room Air Room Air 07/30/24 08:27 Temperature 97.8 F Pulse Rate Pulse Rate [Pulse Oximeter] 66 Respiratory Rate 18 Blood Pressure [Ri ght Arm] 148/66 H Pulse Oximetry 98 Oxygen Delivery Oh thod Room Air Labs Labs: Laboratory Results - last 24 hr 07/29/24 07/29/24 07/29/24 06:04 10:20 14:15 WBC 9.51 RBC 2.69 L Hgb 8.8 L Hct 25.5 L MCV 95 MCH 33 MCHC 35 RDW Coeff of Gerber 14.5 Plt Count 124 L Neut % (Auto) 77.1 H Lymph % (Auto) 16.3 L [place] % (Auto) 6.0 Eos % (Auto) 0.3 Baso % (Auto) 0.2 Neut # (Auto) 7.30 H Lymph # (Auto) 1.60 [place] # (Auto) 0.60 Eos # (Auto) 0.03 Baso # (Auto) 0.02 Abs Immat Gran (auto) 0.01 Imm/Tot Granulo (auto) 0.1 Sodium Potassium Chloride Carbon Dioxide Anion Gap BUN Creatinine Estimated Creat Clear Estimated GFR Glucose Calcium Phosphorus Iron 29 L TIBC 227 L % Saturation 13 L Ferritin 121.0 Albumin Lab Acknowledgement Test Added 07/30/24 08:12 WBC 8.18 RBC 2.73 L Hgb 8.8 L Hct 26.1 L MCV 96 MCH 32 MCHC 34 RDW Coeff of Gerber Plt Count 138 L Neut % (Auto) Lymph % (Auto) [place] % (Auto) Eos % (Auto) Baso % (Auto) Neut # (Auto) Lymph # (Auto) [place] # (Auto) Eos # (Auto) Baso # (Auto) Abs Immat Gran (auto) Imm/Tot Granulo (auto) Sodium 138 Potassium 3.8 Chloride 104 Carbon Dioxide 29 Anion Gap 5 L BUN 20 Creatinine 1.0 Estimated Creat Clear 36.67 Estimated GFR 58 Glucose 91 Calcium 8.7 Phosphorus 2.3 L Iron TIBC % Saturation Ferritin Albumin 3.5 Lab Acknowledgement
[2024-07-30] MEDS: POTASSIUM PHOS/SODIUM PHOS 250 MG TABLET PO ×3 (16:03→21:09)
[2024-07-30] MEDS: polyethylene glycoL 3350 17 GM PACK PO (17:41)
[2024-07-30 19:04] LABS: Hemoglobin* 8.5 gm/dL (12.0-16.0)
--- NOTE | 2024-07-30 19:24 | PC.NURSE ---
End of shift [id number] ? Pt alert, oriented, cooperative. Recent memory impairment noted by RN and pt. Up with x1 assistance and walker/gait belt to bedside commode and from bed to chair. Tolerating TTWB on surgical leg, reporting pain in knee that increases with movement that goes away at rest. Refused pain medication. Surgical leg elevated and ice pack on to improve pt comfort throughout shift. Pedal pulse present, MADELINE wrap dressing CDI. Pt appears to be resting comfortably in chair at end of shift with call light within reach.
[2024-07-30] MEDS: ROSUVASTATIN CALCIUM 10 MG TABLET PO (21:10)
[2024-07-31 03:00] VITALS: BP 152/64; PULSE 74; RESP 16; TEMP 36.5; O2SAT 98
--- NOTE | 2024-07-31 05:16 | PC.NURSE ---
Shift note ([id number]): Patient pleasant, alert and cooperative. Ambulated to the bathroom with assist of 1-2, walker, and gait belt. Given PRN Tylenol and Oxycodone for pain in left leg rated 7/10.?L leg pedal pulse present. Capillary refill <3. No BM this shift. Passing gas. ?
[2024-07-31 06:59] LABS: Basophils Absolute Auto 0.03 K/uL (0.00-0.30); Basophils Percent Auto 0.4 % (0.0-3.0); Eosinophils Absolute Auto 0.12 K/uL (0.00-0.50); Eosinophils Percent Auto 1.8 % (0.0-7.0); Hemoglobin* 8.3 gm/dL (12.0-16.0); Immature Granulocytes Abs Auto 0.02 K/uL (0.00-0.30); Immature Granulocytes Pct Auto 0.3 %; Lymphocytes Percent Auto 33.9 % (20-44); Mean Corpuscular HGB Conc 35 gm/dL (32-36); Mean Corpuscular Hemoglobin 33 pg (26-34); Mean Corpuscular Volume 95 fL (80-100); Monocytes Percent Auto 8.1 % (0.0-11.0); Neutrophils Absolute Auto 3.76 K/uL (1.7-7.0); Neutrophils Percent Auto 55.5 % (42.0-72.0); Platelet Count* 147 K/uL (140-440); RDW Coefficient of Variation % 14.6 % (11.5-15.5); Red Blood Count 2.53 m/uL (4.00-5.20); White Blood Count* 6.78 K/uL (4.50-11.00)
[2024-07-31 07:00] VITALS: PULSE 91
[2024-07-31 07:14] LABS: Chloride* 103 mmol/L (96-114); Potassium* 3.3 mmol/L (3.6-5.1); Sodium* 138 mmol/L (135-149)
[2024-07-31 07:17] LABS: Anion Gap 7 mEq/L (7-15); Blood Urea Nitrogen* 17 mg/dL (7-30); Calcium* 8.4 mg/dL (8.4-10.6); Carbon Dioxide* 28 mmol/L (20-32); Creatinine* 0.9 mg/dL (0.5-1.5); Est. Creatinine Clearance* 36.67; Estimated Glomerular Filt Rate 65 ml/min; Glucose* 84 mg/dL (60-115); Magnesium* 1.7 mg/dL (1.5-2.6); Phosphorus* 3.5 mg/dL (2.5-4.5)
[2024-07-31 07:26] VITALS: RESP 16; O2SAT 98
[2024-07-31 07:35] LABS: Slide Review Reflex No
[2024-07-31 07:45] VITALS: BP 151/60; PULSE 74; RESP 16; TEMP 36.6; O2SAT 97
[2024-07-31] MEDS: CHLORTHALIDONE 25 MG TABLET 12.5 MG PO (08:14)
[2024-07-31] MEDS: allopurinoL 100 MG TABLET 200 MG PO (08:14)
[2024-07-31] MEDS: FOLIC ACID 1 MG TABLET PO (08:14)
[2024-07-31] MEDS: cefuroxime axetiL 500 MG TABLET PO (08:14)
[2024-07-31] MEDS: SODIUM CHLORIDE 0.9 % (FLUSH) 10 ML SYRINGE 5 ML IVF (08:15)
[2024-07-31] MEDS: lisinopriL 20 MG TABLET PO (08:15)
[2024-07-31] MEDS: RIVAROXABAN 10 MG TABLET PO (08:15)
[2024-07-31] MEDS: polyethylene glycoL 3350 17 GM PACK PO (08:49)
[2024-07-31] MEDS: OXYCODONE 5 MG TABLET PO (08:52)
[2024-07-31] MEDS: POTASSIUM CHLORIDE 10 MEQ CAPSULE ER 40 MEQ PO (09:53)
--- NOTE | 2024-07-31 10:05 | PC.SOCIAL ---
Discharge planning: Dtr to pick pt up for transport at 11:30 today. Facility is aware and agrees with this plan. PAS completed PAS#[id number].
[2024-07-31 11:02] VITALS: BP 145/62; PULSE 89; RESP 16; TEMP 36.5; O2SAT 97
--- NOTE | 2024-07-31 11:07 | P.DS_ITS ---
DS: Providers Provider Date Seen: 07/31/24 Date of admission: 07/28/24 08:57 Primary care physician: Fide Franco DO Admitting Clinician: Jaye Gibson MD Consults: 07/27/24 17:06 Consult to Nutrition [CONS] Routine Comment: Reason for consult:: Weight Loss 07/28/24 10:49 Consult to Occupational Therapy [CONS] Routine Comment: Reason(s) for OT Consult:: Evaluate and Treat Any Restrictions?:: Touch Toe Wt Bearing Consult to Physical Therapy [CONS] Routine Comment: Reason(s) for PT Consult:: Evaluate and Treat Any Restrictions?:: Touch Toe Wt Bearing Attending Physician on discharge: Jaye Gibson MD DS: Diagnosis Discharge Diagnosis (1) Fracture tibia/fibula: Status: Acute Problem details: s/p left tibia closed reduction and internal fixation with IM nail (DOS: 07/28/24, Dr. Martin) (2) Fall: Status: Acute Problem details: -DOI 07/27/24, mechanical from standing height -witnessed; prodromal sensation of heat/weakness. -continue monitoring and vasovagal measurement before discharge -UTI noted overnight (3) ABLA (acute blood loss anemia): Status: Acute Problem details: -Pt states that she has hx of Chronic Anemia, likely 2/2 RA, MTX med. -did receive Xarelto, 10 mg the evening of surgery, and daily starting this morning. -patient needs to continue trending Hb -transfusion if Hb < 7 or symptomatic. -Notable Labs, Micro, Rads, Interventions: - hemoglobin stable at discharge at 8.3. baseline 11.9 from Jun 2024. Iron deficient. -ordered ferrous sulfate every other day 2 cell lines are down, platelets less than 100 (178 in Jun 2024, 140 on day of surgery) electrolytes and renal function normal. Mar 2024 - peripheral smear Concurrent laboratory studies show decreased folic acid, which could be contributing to the anemia and hypersegmented neutrophils. The elevated ferritin level argues against iron deficiency anemia. Other potential causes of normocytic anemia include anemia of chronic disease, anemia of renal insufficiency (EGFR = 54), anatomic blood loss and medication effect. There is no morphologic evidence of hemolysis. The specific etiology of the mild thrombocytopenia is not evident from the blood smear findings. The platelets are well granulated and show no evidence of increased platelet clumping. No microangiopathic red cell changes are present. N o dysgranulopoiesis or circulating blasts are seen. Potential causes of thrombocytopenia include medication effect, infection, autoimmune disease and splenomegaly. Platelet count values between 100 and 150 x 109/L are also found in apparently healthy people, who?have <10% chance of developing more significant thrombocytopenia (persistent platelet?count <100 x 109/L) over 10- year follow-up. 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 -Ortho recs Xarelto 10mg x 5 weeks (5) Rheumatoid arthritis: Status: Acute Problem details: Sees Dr. Gomez for Rheumatology. On methotrexate 7.5 mg per week and folate (6) Hypertension: Status: Acute Problem details: -continue home meds (7) Syncope: Status: Acute Problem details: 07/27/2024 had a fall while standing in a line at the grocery store. Prodromal symptoms suggest vasovagal or neurocardiogenic syncope. -reviewed labs; imaging. continue Telemetry. -pt does have GNR on UC - treating (8) Right thyroid nodule: Status: Acute Problem details: Incidental finding on CT of the cervical spine on 07/27/2024. Outpatient follow- up with thyroid ultrasound (9) UTI (urinary tract infection): Status: Acute Problem details: -mild delirium overnight; confusion, incontinence. -cloudy urine; pos nitrite, 5-10WBCs, neg LE, many bacteria -urine culture growing E coli pansensitive -cont oral cefuroxime. (10) Weight loss: Status: Acute Problem details: -addressed by PCP in Jun annual exam -9.3kg down from 06/29 to 06/30 (11) Postoperative delirium: Status: Resolved Problem details: -hospital staff pharmacist reporting confusion at night -MoCA (Tadeo Cognitive Assessment) done -07/30: pt not deleious upon my exam (3 visits on 07/30). DS: Summary Hospital Course Hospital Course: Pt presente w/ Lt Tibial & fibular fracture after a mechanical fall. Orth underwent Left tibia closed reduction and internal fixation with IM nail (DOS: 07/28/24, Dr. Martin). Pt had acute blood loss and Hb decreased to ~ 8.5, but pt was asymptomatic. Ordered Iron PO Tx. Also, pt was found to have UTI, urine culture growing E coli pansensitive. Tx w/ oral cefuroxime ordered. F/up w/ Ortho and w/ PCP for eval & Tx of an incidental Rt thyroid nodule. DC to 3- links. Ortho recom. 35 day DVT px w/ xarelto d/t hx of VTE. Status at Discharge Functional status at discharge: uses cane/walker Overall status at discharge: patient is progressing back to baseline Time Spent with Patient Time attestation: Total time spent providing and/or coordinating discharge services: 50 Exam Narrative: Exam Narrative: Physical exam GENERAL: Comfortable, no acute distress. HEAD AND NECK: Atraumatic, normocephalic CARDIOVASCULAR: RRR. Normal S1, S2. No murmurs. RESPIRATORY: Clear to auscultation B/L. Good air entry B/L. No wheezes or rhonchi. GASTROINTESTINAL: Not distended, not tender to palpation. NEUROLOGY: Alert, awake, oriented X 3. Normal speech. MSK: No hematoma upon exam, just mild bruises on her left lower extremity [id number]. PSYCH: Normal mood, normal affect. Const: Vital Signs, click to edit/add: Vital Signs - 24 hr 07/30/24 15:00 07/30/24 15:00 07/30/24 15:00 Temperature 98.5 F Pulse Rate 79 Pulse Rate [Pulse Oximeter] 68 Respiratory Rate 18 Blood Pressure [Ri ght Arm] 145/77 H Pulse Oximetry 98 98 Oxygen Delivery Me thod Room Air Room Air Oxygen Flow Rate Fraction of Inspir ed Oxygen 07/30/24 19:00 07/30/24 23:00 07/30/24 23:00 Temperature 98.5 F 98.4 F Pulse Rate Pulse Rate [Pulse Oximeter] 87 79 Respiratory Rate 18 17 19 Blood Pressure [Ri ght Arm] 158/55 H 163/62 H Pulse Oximetry 96 96 97 Oxygen Delivery Me thod Room Air Room Air Oxygen Flow Rate Fraction of Inspir ed Oxygen 07/30/24 23:00 07/31/24 03:00 07/31/24 07:00 Temperature 97.7 F Pulse Rate 76 91 Pulse Rate [Pulse Oximeter] 74 Respiratory Rate 16 Blood Pressure [Ri ght Arm] 152/64 H Pulse Oximetry 98 Oxygen Delivery Me thod Room Air Oxygen Flow Rate Fraction of Inspir ed Oxygen 07/31/24 07:26 07/31/24 07:45 07/31/24 07:45 Temperature 97.9 F Pulse Rate Pulse Rate [Pulse Oximeter] 74 Respiratory Rate 16 16 16 Blood Pressure [Ri ght Arm] 151/60 H Pulse Oximetry 98 97 Oxygen Delivery Me thod Room Air Room Air Oxygen Flow Rate 6 Fraction of Inspir ed Oxygen 100 07/31/24 11:02 Temperature 97.7 F Pulse Rate Pulse Rate [Pulse Oximeter] 89 Respiratory Rate 16 Blood Pressure [Ri ght Arm] 145/62 H Pulse Oximetry 97 Oxygen Delivery Me thod Room Air Oxygen Flow Rate Fraction of Inspir ed Oxygen DS: Data Data Completed and Pending Labs on day of discharge: Labs from last 24 hours 07/31/24 07/30/24 06:14 18:55 WBC 6.78 RBC 2.53 L Hgb 8.3 L 8.5 L Hct 24.0 L MCV 95 MCH 33 MCHC 35 RDW Coeff of Gerber 14.6 Plt Count 147 Neut % (Auto) 55.5 Lymph % (Auto) 33.9 [place] % (Auto) 8.1 Eos % (Auto) 1.8 Baso % (Auto) 0.4 Neut # (Auto) 3.76 Lymph # (Auto) 2.30 [place] # (Auto) 0.50 Eos # (Auto) 0.12 Baso # (Auto) 0.03 Abs Immat Gran (auto) 0.02 Imm/Tot Granulo (auto) 0.3 Sodium 138 Potassium 3.3 L Chloride 103 Carbon Dioxide 28 Anion Gap 7 BUN 17 Creatinine 0.9 Estimated Creat Clear 36.67 Estimated GFR 65 Glucose 84 Calcium 8.4 Phosphorus 3.5 Magnesium 1.7 RBC Fol Luis Enrique for Serum Pending Discharge Plan Discharge Disposition: Xfer SNF Discharge Location: [facility] Date of Admission: 07/28/24 08:57 Attending Provider on Discharge: Mable Carvalho Primary Care Provider: Fide Franco Condition: Stable Anticipated Discharge Date/Time: 07/31/24 10:37 Discharge Medications: New sennosides-docusate sodium [Stool Softener-Laxative] 8.6-50 mg Tablet 1 - 2 tab PO BID PRN30 Days Qty: 60 0RF cefuroxime axetil 500 mg Tablet 500 mg PO BIDWM 5 Days Qty: 10 0RF Xarelto 10 mg Tablet 10 mg PO DAILY 32 Days Qty: 32 0RF acetaminophen 325 mg Tablet 650 mg PO Q6H PRN20 Days Qty: 80 0RF polyethylene glycol 3350 [Miralax] 17 gram Powder In Packet 17 g PO DAILY 15 Days Qty: 15 0RF oxycodone 5 mg Tablet 5 mg PO Q8H PRN4 Days Qty: 12 0RF ferrous sulfate 325 mg (65 mg iron) tablet,delayed release (DR/EC) 325 mg PO Q OTHER DAY Qty: 90 1RF ascorbic acid (vitamin C) [Vitamin C] 250 mg tablet 250 mg PO Q OTHER DAY Qty: 90 1RF Continued lisinopril 20 mg tablet 20 mg PO DAILY chlorthalidone 25 mg tablet 12.5 mg PO DAILY allopurinol 100 mg tablet 200 mg PO DAILY methotrexate sodium 2.5 mg tablet 7.5 mg PO Q7D Patient Comments: saturday rosuvastatin 10 mg tablet 10 mg PO HS calcium carbonate-vitamin D3 600 mg-10 mcg (400 unit) tablet 1 tab PO BID multivitamin with folic acid [Daily-Mariama (with folic acid)] 400 mcg tablet 1 tab PO DAILY folic acid 1 mg tablet 1 mg PO DAILY Discharge Orders: Discharge Order (Routine); Ordered 07/31/24 Ordered By: Mable Carvalho Additional Instructions: 1. Patient will need hemoglobin lab check tomorrow and if still stable, repeat in 48 hours. 2. hgb stable at DC, at 8.3, patient asymptomatic 3. Iron tabs ordered 4. VTE plan - Xarelto 10mg daily for 5 weeks 5. MoCA was 24 - delirium attributed to surgery, pain, meds 6. GNR on urine culture - E coli pansensitive 7. thyroid nodule needs outpatient f/u Activity Level: Toe Touch Wt Bearing and Use Walker Discharge Diet: Regular Follow Up Appointments: Fdie Franco DO [Primary Care Provider] - Jaye Connor PA-C [Physician Resin Maker] - Forms: [facility] Info Instructions Admit to: SNF Discharge Potential: Good Length of Stay: <30 days Can use facility standing orders?: Yes Code Status: DNR TEDs: Right Knee Rehab Potential: Good Therapy: Physical Therapy and Occupational Therapy Oxygen: No
[2024-07-31 11:42] VITALS: BP 160/51; PULSE 91; RESP 16; TEMP 36.5
[2024-07-31 22:17] LABS: Folate, Serum >22.3 ng/mL (>=5.9)
== END 2024-07-31 12:04 | DRG 493 ==
LOC: ED 14:40 → MEDSURG 07-28 07:14 → SS 07-28 08:16 → MEDSURG 07-28 08:17 → SS 07-28 11:12 → MEDSURG 07-28 15:50
PROVIDERS: Orthopaedic Surgery; Student in an Organized Health Care Education/Training Program; Admitting Provider Family Medicine; Emergency Provider Emergency Medicine; PCP Family Medicine; Visit Provider Surgery
DX: S82.242A Displaced spiral fracture of shaft of left tibia, initial encounter for closed fracture (principal); D62 Acute posthemorrhagic anemia; N39.0 Urinary tract infection, site not specified; F05 Delirium due to known physiological condition; S82.452A Displaced comminuted fracture of shaft of left fibula, initial encounter for closed fracture; B96.20 Unspecified Escherichia coli [E. coli] as the cause of diseases classified elsewhere; W18.30XA Fall on same level, unspecified, initial encounter; Y92.512 Supermarket, store or market as the place of occurrence of the external cause; R55 Syncope and collapse; E04.1 Nontoxic single thyroid nodule; Z95.828 Presence of other vascular implants and grafts; I10 Essential (primary) hypertension; M06.9 Rheumatoid arthritis, unspecified; Z86.711 Personal history of pulmonary embolism; R63.4 Abnormal weight loss; Z68.24 Body mass index [BMI] 24.0-24.9, adult; G89.18 Other acute postprocedural pain
CPT/HCPCS: 29515; 01480; 36415; 64445; 64447; 70450; 71045; 72125; 73590; 76000; 76942; 80048; 80069; 81001; 81003; 82270; 82728; 82746; 83540; 83550; 83605; 83735; 84100; 84484; 85018; 85025; 85027; 87086; 97110; 97116; 97162; 97165; 97530; 97535; 99100; 99284; 99285; A9270; C1713; G0378; J0690; J0744; J1100; J1171; J2175; J2250; J2270; J2405; J2704; J3010; J3475; J7030; J7120